=== PATIENT | female | born 1940 | race Caucasian/White ===

== ENCOUNTER → 2023-11-14 12:50 | Outpatient (REF) | payer OTHER, SELFPAY | LOC: HWRAD 12:50 | PROVIDERS: ATTENDING PHYSICIAN Family Medicine; FAMILY PHYSICIAN Nurse Practitioner Family | DX: R05.3 Chronic cough (principal) | CPT/HCPCS: 71046 ==

== ENCOUNTER → 2024-03-04 12:21 | Outpatient (REF) | payer OTHER, SELFPAY | LOC: HWRAD 12:21 | PROVIDERS: ATTENDING PHYSICIAN Internal Medicine Critical Care Medicine; FAMILY PHYSICIAN Nurse Practitioner Family | DX: R91.1 Solitary pulmonary nodule (principal) | CPT/HCPCS: 71250 ==

== ENCOUNTER → 2024-06-26 12:42 | Outpatient (REF) | payer OTHER, SELFPAY | LOC: HWRCS 12:42 | PROVIDERS: ATTENDING PHYSICIAN Internal Medicine; FAMILY PHYSICIAN Nurse Practitioner Family | DX: R07.89 Other chest pain (principal) | CPT/HCPCS: 93306 ==

== ENCOUNTER → 2024-07-17 10:36 | Outpatient (REF) | payer OTHER, SELFPAY | LOC: DHCBC/DCA 10:36 | PROVIDERS: ATTENDING PHYSICIAN Internal Medicine; FAMILY PHYSICIAN Nurse Practitioner Family | DX: R07.89 Other chest pain (principal) | CPT/HCPCS: 78452; 93017; A9500; J2785 ==

== ENCOUNTER → 2024-07-22 13:09 | Outpatient (REF) | payer OTHER, SELFPAY | LOC: HWRAD 13:09 | PROVIDERS: ATTENDING PHYSICIAN Internal Medicine Critical Care Medicine; FAMILY PHYSICIAN Nurse Practitioner Family | DX: R91.1 Solitary pulmonary nodule (principal) | CPT/HCPCS: 71250 ==

== ENCOUNTER → 2024-10-01 13:06 | Outpatient (REF) | payer OTHER, SELFPAY | LOC: HWWDC 13:06 | PROVIDERS: ATTENDING PHYSICIAN Nurse Practitioner Family | DX: Z12.31 Encounter for screening mammogram for malignant neoplasm of breast (principal) | CPT/HCPCS: 77063; 77067 ==

== ENCOUNTER → 2024-10-21 12:31 | Outpatient (REF) | payer OTHER, SELFPAY | LOC: HWRAD 12:31 | PROVIDERS: ATTENDING PHYSICIAN Nurse Practitioner Adult Health; FAMILY PHYSICIAN Nurse Practitioner Family | DX: R91.1 Solitary pulmonary nodule (principal) | CPT/HCPCS: 71250 ==

== ENCOUNTER → 2024-11-03 10:11 | Outpatient (REF) | payer OTHER, SELFPAY | LOC: WDC 10:11 | PROVIDERS: ATTENDING PHYSICIAN Nurse Practitioner Family | DX: R92.8 Other abnormal and inconclusive findings on diagnostic imaging of breast (principal) | CPT/HCPCS: 77065 ==

== ENCOUNTER → 2024-11-05 12:11 | Outpatient (REF) | payer OTHER, SELFPAY | LOC: PET 12:11 | PROVIDERS: ATTENDING PHYSICIAN Internal Medicine Critical Care Medicine | DX: R91.1 Solitary pulmonary nodule (principal) | CPT/HCPCS: 78815; A9552 ==

== ENCOUNTER 2024-11-16 06:10 | Day surgery (SDC) | payer OTHER, SELFPAY ==
[2024-11-10 13:53] LABS: INR 1.04; PT 13.9 Sec (11.4-14.6)
[2024-11-10 13:54] LABS: APTT 35.3 Sec (23.4-35.0); Hematocrit 34.7 % (37.0-47.0); Hemoglobin 11.9 g/dL (12.0-16.0); Mean Corp Hgb Conc. 34.3 g/dL (33.0-37.0); Mean Corpuscular Hgb 33.1 pg (27.0-31.0); Mean Corpuscular Volume 96.7 fL (81.0-99.0); Platelet Count 227 10^3/uL (130-400); Red Blood Cell Count 3.59 10^6/uL (4.20-5.40); Red Cell Dist. Width 13.2 % (11.5-14.5); White Blood Cell Count 3.7 10^3/uL (4.8-10.8)
[2024-11-10 14:16] VITALS: BMI 24.3
[2024-11-10 14:27] LABS: Blood Urea Nitrogen 15 mg/dl (7-17); Calcium 8.6 mg/dl (8.4-10.2); Carbon Dioxide 27 mmol/L (22-30); Chloride 102 mmol/L (98-107); Estimated Creatinine Clearance 58 ml/min; Glucose 92 mg/dl (70-99); Sodium 139 mmol/L (135-145); eGFR > 60.00
[2024-11-16 08:38] VITALS: BMI 24.3
[2024-11-16 08:50] VITALS: BP 124/79
[2024-11-16] MEDS: DUONEB 3 ML INH (08:53)
[2024-11-16 08:56] VITALS: BMI 24.0
[2024-11-16 10:34] VITALS: BP 119/74; BP 124/79
[2024-11-16 10:45] VITALS: BP 112/75
[2024-11-16 11:20] VITALS: BP 121/83
[2024-11-16 11:35] VITALS: BP 130/72
[2024-11-16 11:50] VITALS: BP 123/66
== END 2024-11-16 11:50 | disposition home or self-care (01) ==
LOC: GI 06:10
PROVIDERS: ATTENDING PHYSICIAN Internal Medicine Critical Care Medicine; FAMILY PHYSICIAN Nurse Practitioner Family
DX: C34.2 Malignant neoplasm of middle lobe, bronchus or lung (principal); R91.1 Solitary pulmonary nodule; R59.0 Localized enlarged lymph nodes; J84.9 Interstitial pulmonary disease, unspecified; R91.8 Other nonspecific abnormal finding of lung field
CPT/HCPCS: 31629; 31624; 31623; 31627; 31654; 88173; 88305; 36415; 71045; 76000; 80048; 81459; 85027; 85610; 85730; 87015; 87070; 87077; 87102; 87116; 87185; 87205; 88112; 88341; 88342; 93005; 94640; C1887

== ENCOUNTER → 2024-12-08 06:33 | Outpatient (REF) | payer OTHER, SELFPAY ==
--- NOTE | 2024-12-08 08:54 | OID.BR.INTR ---
PAOD Breast Navigator - Initial
- -
Date of Contact: 12/08/24
Met with patient. Patient given written information on navigator service available at [facility]. Will follow up as needed per protocol.
== END ==
LOC: WDC 06:33
PROVIDERS: ATTENDING PHYSICIAN Nurse Practitioner Family
DX: R92.1 Mammographic calcification found on diagnostic imaging of breast (principal)
CPT/HCPCS: 88305; 19081; 76098; 88341; 88342; 88360; A4648

== ENCOUNTER 2025-01-04 14:55 | Emergency (ER) | payer OTHER, SELFPAY ==
[2025-01-04 14:58] VITALS: BP 141/86
[2025-01-04 15:16] LABS: % Basophils 0.3 % (0-2); % Eosinophils 2.1 % (0-6); % Immature Granulocytes 0.5 % (0-0.5); % Lymphocytes 5.4 % (20.5-51.1); % Monocytes 5.7 % (1.7-9.3); Absolute Eosinophils 0.2 10^3/uL (0-0.7); Absolute Immature Granulocytes 0.1 10^3/uL (0-0.05); Absolute Lymphocytes 0.5 10^3/uL (1.2-3.4); Absolute Monocytes 0.6 10^3/uL (0.1-0.6); Absolute Neutrophils 8.7 10^3/uL (1.4-6.5); Hematocrit 35.8 % (37.0-47.0); Hemoglobin 11.9 g/dL (12.0-16.0); Mean Corp Hgb Conc. 33.2 g/dL (33.0-37.0); Mean Corpuscular Hgb 32.3 pg (27.0-31.0); Mean Corpuscular Volume 97.3 fL (81.0-99.0); Nucleated Red Blood Cells % 0 %; Platelet Count 201 10^3/uL (130-400); Red Blood Cell Count 3.68 10^6/uL (4.20-5.40); Red Cell Dist. Width 14.1 % (11.5-14.5); White Blood Cell Count 10.1 10^3/uL (4.8-10.8)
[2025-01-04 15:41] LABS: ALT (SGPT) 27 U/L (0-35); AST (SGOT) 22 U/L (14-36); Albumin 4.4 g/dl (3.5-5.0); Alkaline Phosphatase 77 U/L (38-126); Blood Urea Nitrogen 14 mg/dl (7-17); Calcium 8.5 mg/dl (8.4-10.2); Carbon Dioxide 25 mmol/L (22-30); Chloride 109 mmol/L (98-107); Glucose 99 mg/dl (70-99); Sodium 140 mmol/L (135-145); Total Bilirubin 0.9 mg/dl (0.2-1.3); Total Protein 6.9 g/dl (6.3-8.2); eGFR > 60.00
[2025-01-04 16:02] LABS: Lipase 57 U/L (23-300)
[2025-01-04] MEDS: OMNIPAQUE 50 ML PO (20:54)
[2025-01-04 20:58] VITALS: BP 122/85
[2025-01-04 21:02] VITALS: BMI 24.6
[2025-01-04] MEDS: ZOFRAN 4 MG IV (21:52)
[2025-01-04] MEDS: MORPHINE SULFATE 4 MG IV (21:54)
[2025-01-04 22:00] VITALS: BP 128/80
[2025-01-04 22:10] LABS: Urine Albumin 1+ (Neg - Trace); Urine Bilirubin Negative (Negative); Urine Character Clear (Clear); Urine Color Yellow; Urine Glucose Negative (Negative); Urine Ketone Negative (Negative); Urine Leukocyte Negative (Negative); Urine Nitrite Negative (Negative); Urine Occult Blood 1+ (Negative); Urine Urobilinogen Negative (Neg - 1+)
[2025-01-04 22:48] LABS: Urine Bacteria Few (Negative); Urine Red Blood Cell 0-2 /HPF (0-2); Urine Squamous Cell >30 /LPF (Few)
[2025-01-04 23:00] VITALS: BP 120/81
--- NOTE | 2025-01-05 00:20 | ED.GENMED ---
History of Present Illness
General
Chief Complaint: Abdominal Pain
Source: patient and family
Exam Limitations: none
Time Seen by Provider: 01/04/25 20:12
Nursing documentation reviewed up to this point in time: agreed with
History of Present Illness
History of Present Illness:
84-year-old female presents emergency department due to right-sided abdominal pain since this morning. She states it feels like gas. She had a fever 102 over the weekend right upper quadrant pain.
Past History
Past History
ED Past Medical History: Cancer (Thyroid cancer), HTN, Hypercholesterolemia and Other (TIA; left forearm/ulna surgery due to trauma.)
ED Past Surgical History: Appendectomy, Gynecological (hysterectomy), Orthopedic (Bilateral hip replacements) and Other (thyroidectomy)
Social History
Tobacco: Smoker (1ppd for 50+ yrs)
Alcohol: Daily (1 drink daily)
Drug: None
Personal:
Living: with family
Employment: Retired (RN)
Family History
Family History: Other
Review of Systems
Review of Systems
Allergies reviewed?: Yes
All Other Systems: Not applicable
Constitutional: Reports no symptoms
EENT: Reports no symptoms
Respiratory: Reports no symptoms
Cardiac: Reports no symptoms
ABD/GI: Reports abdominal pain
: Reports no symptoms
Musculoskeletal: Reports no symptoms
Skin: Reports no symptoms
Neurological: Reports no symptoms
Endocrine: Reports no symptoms
Hematologic/Lymphatic: Reports no symptoms
Psychiatric: Reports no symptoms
Phy Exam
Physical Exam
Physical Exam:
Physical Exam
General: no apparent distress, not acutely ill
Neck: supple. no meningeal signs. normal posterior pharynx
Heart: s1/s2 regular rate and rhythm, no murmur. equal radial
pulses.
HEENT: Pupils equal round reactive to light, EOMI
Lungs: no acute respiratory distress. clear bilaterally
Abdomen: normal bowel sounds. Right lower quadrant abdominal tenderness. No rebound or guarding. No CVAT
Neuro: alert and oriented. no focal neurological deficits cranial nerves II through XII intact
Skin: no rash
Psychiatric: well kept. interactive and cooperative
Extremities: no edema. no calf tenderness. negative homans. good distal pulses
Course
Orders/Labs/Results
Orders:
Orders
01/04/25 15:04
Obstruct Series W/PA Chest [CR Obstruct Series W/pa Chest] Urgent
Comment:
Reason For Exam: pain
01/04/25 15:06
Complete Blood Count/With Diff Urgent
Comprehensive Metabolic Panel Urgent
Lipase Urgent
01/04/25 20:25
Iohexol [Omnipaque] See Protocol PO NOW STA
01/04/25 20:26
CT Abd/pel W Iv And Oral Contr Urgent
Comment:
Reason For Exam: diffuse abd pain, nausea
01/04/25 21:09
Morphine Sulfate 4 mg IV NOW STA
Ondansetron Injectable [Zofran] 4 mg IV NOW STA
01/04/25 21:58
Urinalysis Reflex To Culture Urgent
Date Specimen was Collected: 01/04/25
Time Specimen was Collected: 20:38
Urine Microscopic Reflex Cult Urgent
Abnormal Lab Results
01/04/25 01/04/25
15:06 21:58
RBC 3.68 L 10^6/uL
(4.20-5.40)
Hgb 11.9 L g/dL
(12.0-16.0)
Hct 35.8 L %
(37.0-47.0)
MCH 32.3 H pg
(27.0-31.0)
Abs Immat Gran (auto) 0.1 H 10^3/uL
(0-0.05)
Absolute Neuts (auto) 8.7 H 10^3/uL
(1.4-6.5)
Absolute Lymphs (auto) 0.5 L 10^3/uL
(1.2-3.4)
Neutrophils % 86.0 H %
(42.2-75.2)
Lymphocytes % 5.4 L %
(20.5-51.1)
Chloride 109 H mmol/L
(98-107)
Ur Occult Blood Reflex 1+ A
(Negative)
Urine Bacteria (Reflex) Few A
(Negative)
Urine Albumin (Reflex) 1+ A
(Neg - Trace)
01/04/25 15:06
01/04/25 15:06
Vital Signs
Initial and Last Documented VS:
Initial Vital Signs
Temp Pulse Resp BP Pulse Ox
98.1 F 54 16 141/86 97
01/04/25 14:58 01/04/25 14:58 01/04/25 14:58 01/04/25 14:58 01/04/25 14:58
Last Documented Vital Signs
Temp Pulse Resp BP Pulse Ox
98.1 F 54 16 120/81 92
01/04/25 14:58 01/04/25 14:58 01/04/25 14:58 01/04/25 23:00 01/04/25 23:00
MDM/Problems Addressed
Differential Diagnosis Includes:
Appendicitis, cholecystitis, diverticulitis, mass
MDM/Problems Addressed:
84-year-old female with cecum mass causing abdominal pain. No respiratory symptoms at this time. Discussed with Dr. Mcrae, who recommends outpatient follow-up. Return precautions given.
Chronic conditions affecting care: Cancer (Thyroid, breast, lung)
*Radiology
Radiology exam reviewed: radiology read reviewed (CT abdomen pelvis shows circumferential mass within the cecum, no bowel obstruction, read by Dr. Werner)
*Pulse Oximetry
Patient hypoxic: no
*Critical Care Note
Total Time (30-74mins, 75-104mins- exclusive of procedures): Not Applicable
Patient Management
Social determinants of health affecting care: Living situation and Strong social support
Discussion with other providers: Lending Advisor (Colorectal surgery Dr. Mcrae recommends outpatient follow-up)
Escalation/DeEscalation of care consider admission/obs:
Admit not indicated
ED Attending Note
-
Portions of this chart may have been created with voice recognition software.� Occasional wrong word or��sound alike� substitutions may have occurred due to the inherent limitations of voice recognition software.
Discharge Plan
Departure
Patient Disposition: Home (Routine Discharge)
Date of Disposition: 01/05/25
Time of Disposition: 00:25
Patient with high blood pressure during this ER visit?: Yes
Condition: Good
Discharge Problem:
Mass of cecum
Instructions: Colon and Rectal Cancer (DC), BLOOD PRESSURE
Prescriptions:
No Action
metoprolol tartrate 100 MG tablet
100 mg PO BID
pantoprazole 40 MG tablet,delayed release (DR/EC)
40 mg PO DAILY
amlodipine 10 mg Tablet
10 mg PO HS
losartan 100 mg Tablet
100 mg PO DAILY
azithromycin 250 mg Tablet
250 mg PO MOWEFR
Rx Instructions:
For 250 mg dose pack: take 500 mg today (day 1), then 250 mg for 4 days (days 2-5)
aspirin 325 mg Tablet
325 mg PO HS
gabapentin 400 mg Capsule
400 mg PO TID
Rx Instructions:
0900, 1500, 2100
sertraline 100 mg Tablet
100 mg PO .AFTERNOON
clonazepam [Klonopin] 1 mg Tablet
1 mg PO DAILY PRN (Reason: anxiety/panic attacks)
levothyroxine 100 mcg Tablet
100 mcg PO 0300
temazepam 15 mg Capsule
15 mg PO HS PRN (Reason: sleep)
montelukast 10 mg Tablet
10 mg PO .AFTERNOON
ezetimibe 10 mg Tablet
10 mg PO HS
rosuvastatin 40 mg Tablet
40 mg PO HS
omeprazole 20 mg Tablet,Delayed Release (Dr/Ec)
20 mg PO DAILY
multivit with min-folic acid [Multivitamin Gummies] 200 mcg Tablet,Chewable
2 tab PO DAILY
PreserVision AREDS-2 250-90-40-1 mg Capsule
1 tab PO BID
Calcium Gummies
2 gummy PO DAILY
Referrals:
Phu Mcrae MD [Active] - Call in 1-3 days for appt
Tiffanie Jane CRNP [Family Provider] -
Interventions
Interventions:
*Risk Screen - Suicide Last Done: 01/04/25 14:58
*General Assessment Last Done: 01/04/25 14:58
*Neglect/Abuse Screening Last Done: 01/04/25 21:03
*ED- Fall Risk Assessment Last Done: 01/04/25 21:03
*ED COVID-19 Vaccine History Last Done: 01/04/25 21:03
TH-Hehahf-Qodachsygx Assessment Last Done: 01/04/25 21:03
Discharge Date and Time
Print Language: FRENCH
== END 2025-01-05 00:44 | disposition home or self-care (01) ==
LOC: EMR 14:55
PROVIDERS: Emergency Medicine; EMERGENCY PHYSICIAN Emergency Medicine; FAMILY PHYSICIAN Nurse Practitioner Family
DX: K63.9 Disease of intestine, unspecified (principal); I10 Essential (primary) hypertension; E78.00 Pure hypercholesterolemia, unspecified; C50.919 Malignant neoplasm of unspecified site of unspecified female breast; C73 Malignant neoplasm of thyroid gland; F17.210 Nicotine dependence, cigarettes, uncomplicated; Z85.850 Personal history of malignant neoplasm of thyroid; Z86.73 Personal history of transient ischemic attack (TIA), and cerebral infarction without residual deficits; Z90.49 Acquired absence of other specified parts of digestive tract; Z90.710 Acquired absence of both cervix and uterus; Z96.643 Presence of artificial hip joint, bilateral
CPT/HCPCS: 99284; 96374; 96375; 74022; 74177; 80053; 81003; 81015; 83690; 85025; Q9967

== ENCOUNTER 2025-01-15 06:09 | Day surgery (SDC) | payer OTHER, SELFPAY ==
[2025-01-15 11:54] VITALS: BMI 23.5
[2025-01-15 11:55] VITALS: BMI 23.5
[2025-01-15 11:56] VITALS: BP 135/80
[2025-01-15 13:15] VITALS: BP 138/94
[2025-01-15 13:30] VITALS: BP 142/91
[2025-01-15 13:45] VITALS: BP 130/76
[2025-01-15 14:00] VITALS: BP 130/90
[2025-01-15 14:15] VITALS: BP 133/86
== END 2025-01-15 14:31 | disposition home or self-care (01) ==
LOC: GI 06:09
PROVIDERS: ATTENDING PHYSICIAN Surgery
DX: R93.3 Abnormal findings on diagnostic imaging of other parts of digestive tract (principal); K57.30 Diverticulosis of large intestine without perforation or abscess without bleeding; K64.4 Residual hemorrhoidal skin tags; K64.8 Other hemorrhoids; D49.0 Neoplasm of unspecified behavior of digestive system; D12.3 Benign neoplasm of transverse colon; K63.3 Ulcer of intestine; D12.2 Benign neoplasm of ascending colon
CPT/HCPCS: 45385; 45380; 88305; 88341

== ENCOUNTER → 2025-02-03 13:39 | Outpatient (REF) | payer OTHER, SELFPAY | LOC: RAD 13:39 | PROVIDERS: ATTENDING PHYSICIAN Surgery; FAMILY PHYSICIAN Nurse Practitioner Family | DX: C18.2 Malignant neoplasm of ascending colon (principal) | CPT/HCPCS: 71270; Q9967 ==

== ENCOUNTER → 2025-02-08 09:49 | Outpatient (REF) | payer OTHER, SELFPAY ==
[2025-02-08 10:30] LABS: % Basophils 1.9 % (0-2); % Eosinophils 11.5 % (0-6); % Lymphocytes 26.8 % (20.5-51.1); % Monocytes 14.2 % (1.7-9.3); % Neutrophils 45.6 % (42.2-75.2); Absolute Basophils 0.1 10^3/uL (0-0.2); Absolute Eosinophils 0.3 10^3/uL (0-0.7); Absolute Lymphocytes 0.7 10^3/uL (1.2-3.4); Absolute Monocytes 0.4 10^3/uL (0.1-0.6); Absolute Neutrophils 1.2 10^3/uL (1.4-6.5); Hemoglobin 11.4 g/dL (12.0-16.0); Mean Corp Hgb Conc. 32.6 g/dL (33.0-37.0); Mean Corpuscular Hgb 32.2 pg (27.0-31.0); Mean Corpuscular Volume 98.9 fL (81.0-99.0); Mean Platelet Volume 10.6 fL (7.4-10.4); Nucleated Red Blood Cells % 0 %; Platelet Count 182 10^3/uL (130-400); Red Blood Cell Count 3.54 10^6/uL (4.20-5.40); Red Cell Dist. Width 14.2 % (11.5-14.5); White Blood Cell Count 2.6 10^3/uL (4.8-10.8)
[2025-02-08 10:39] LABS: INR 1.01; PT 13.6 Sec (11.4-14.6)
[2025-02-08 11:58] LABS: APTT 31.4 Sec (23.4-35.0)
[2025-02-08 20:25] LABS: CEA 7.38 ng/ml
== END ==
LOC: RCS 09:49
PROVIDERS: ATTENDING PHYSICIAN Nurse Practitioner Family
DX: Z01.818 Encounter for other preprocedural examination (principal)
CPT/HCPCS: 36415; 82378; 85025; 85610; 85730; 93005

== ENCOUNTER 2025-02-23 07:13 | Inpatient (IN) | payer OTHER, SELFPAY ==
--- NOTE | 2025-02-09 10:18 | PTCARENOTE ---
Patients 02/08 WBC 2.6-Anny @ Dr. Arias office notified
[2025-02-09 11:48] LABS: ALT (SGPT) 32 U/L (0-35); AST (SGOT) 30 U/L (14-36); Albumin 4.7 g/dl (3.5-5.0); Alkaline Phosphatase 73 U/L (38-126); Blood Urea Nitrogen 11 mg/dl (7-17); Calcium 8.9 mg/dl (8.4-10.2); Carbon Dioxide 29 mmol/L (22-30); Chloride 108 mmol/L (98-107); Glucose 104 mg/dl (70-99); Potassium 3.8 mmol/L (3.5-5.1); Sodium 144 mmol/L (135-145); Total Protein 7.5 g/dl (6.3-8.2); eGFR > 60.00
[2025-02-09 12:12] LABS: Glycohemoglobin (HgbA1c) 5.3 % (4.0-5.6)
[2025-02-23] VITALS (12 sets, daily range): BP systolic 90–138; BP diastolic 49–89; BMI 23.3; BMI 24.7
[2025-02-23] MEDS: LYRICA 150 MG PO (07:29)
[2025-02-23] MEDS: HEPARIN 5000 UNITS SC (07:30)
[2025-02-23] MEDS: TYLENOL 1000 MG PO (07:30)
[2025-02-23] MEDS: NORMOSOL-R/PLASMALYTE-A 1000 IV ×2 (07:30→18:10)
[2025-02-23] MEDS: ENTEREG 12 MG PO (07:30)
--- NOTE | 2025-02-23 15:39 | W.IMMPOSTOP ---
Addendum entered and electronically signed by Hira Cha MD 02/23/25 22:39:
Correction: EBL *75mL
Original Note:
Surgical Immed Post Op Note
-
Primary Surgeon: Hira Cha MD
Assisting Surgeon: SOL Sam
Co-surgeon: Lorenzo Mcrae MD
Pre-op Diagnosis: Ascending colon mass
Post-op Diagnosis: Ascending colon ulcer, small bowel lesion
Procedure Performed: Robotic right hemicolectomy, extensive lysis of adhesions greater than 1.5 hours, mesenteric angiography with ICG, colonoscopy, small bowel resection
Anesthesia Type: General
Specimen / Cultures: Right colectomy, small bowel resection
Estimated Blood Loss: 25 mL
IVF: 2.9 L
UOP: 1.0 L
Complications: None
Operative Findings: Obtained abdominal axis via Veress; significant adhesions from the omentum to the anterior abdominal wall; placed left lateral assist port and sharply lysed adhesions until I was able to place 2 additional ports; the robot was
docked and I lysed the remainder of the adhesions; no obvious peritoneal lesions or lesions seen on the anterior liver; cecum was redundant and within the pelvis; performed medial to lateral mobilization of the right colon; identified the right
ureter and kept safe from my dissection; high ligation of the ileocolic pedicle and the right branch of the middle colic; checked transection points and well-perfused on firefly; transected the small bowel at about 6 cm proximal from the ileocecal
valve and transected at the mid transverse colon; performed isoperistaltic intracorporeal opos-ao-psai anastomosis; while running the bowel to ensure no bowel herniated through the mesenteric defect, discovered a 1 cm small bowel lesion that
appeared polypoid but firm; tagged this with a 2-0 Vicryl; I ran the entire length of the small bowel and no other lesions were noted; created Pfannenstiel incision and extracted the specimen; evaluated the specimen but no mass was found; performed
colonoscopy; unable to pass the colonoscope past the sigmoid colon due to the tortuosity and adhesions to the left pelvis and left lower abdomen; redocked of the robot and lysed adhesions from the sigmoid to the left pelvis and left lower quadrant;
easily identified the left ureter and kept it the safe; performed colonoscopy and reached the ileocolic anastomosis; intubated the small bowel and no mass was seen; on completion of colonoscopy, no mass was seen; my partner, Dr. Mcrae, performed
colonoscopy and confirmed no mass; performed small bowel resection with 8 cm margins of the small bowel lesion and performed stapled [id number] anastomosis through the Pfannenstiel; closed in the usual fashion
--- NOTE | 2025-02-23 15:48 | OR.RPT ---
Operative Report
Operative Report
DATE OF OPERATION: 02/23/2025
SURGEON: Hira Cha MD
PREOPERATIVE DIAGNOSIS: Ascending colon mass
POSTOPERATIVE DIAGNOSIS: Ascending colon ulcer, small bowel lesion
OPERATION: Robotic right hemicolectomy, adhesiolysis greater than 1.5 hr, mesenteric angiography with ICG, colonoscopy, small bowel resection
ASSISTANTS:
1. Lorenzo Mcrae MD
2. SOL Sam
ANESTHESIA: General
ESTIMATED BLOOD LOSS: 75 mL
UOP: 1.0 L mL
IVF: 2.9 L mL
FINDINGS:
1. Significant adhesions from the omentum to the anterior abdominal wall as well as loops of small bowel
1. Performed high ligation of the ileocolic pedicle and right branch of the middle colic; performed iiub-ob-lacl isoperistaltic intracorporeal anastomosis
2. On review of specimen on the back table, no obvious mass that was consistent with my preoperative colonoscopy was found; performed intra-operative colonoscopy and repeat colonoscopy by Dr. Mcrae to confirm no lesion remaining in the in situ colon
3. Identified a polypoid extraluminal small bowel mass, about 1 cm in size; performed small bowel resection with 8 cm margins proximally and distally
SPECIMENS:
1. Right colectomy
2. Small bowel resection
DRAINS: None
COMPLICATIONS: No immediate complications.
INDICATIONS: The patient is a 84-year-old female who was recently diagnosed with lung cancer and underwent radiation therapy. After her last dose of radiation, she developed right-sided abdominal pain, for which a CT scan was done and showed an
ascending colon mass. I performed a colonoscopy on 01/15/2025, which confirmed an ulcerated mass in the proximal ascending colon, within view of the ileocecal valve. Biopsy of the mass showed fragments of adenomatous tissue as well as ulceration.
As this mass was not endoscopically resectable, I recommended colectomy, both to confirm the pathology and for oncologic resection if cancer is found. The operation was discussed with the patient in detail, including the risks, benefits and
alternatives. Risks described included, but not limited to, bleeding, infection, anastomotic leak, damage to nearby structures (i.e.- bowel, bladder, solid organ injury, ureter), need for ostomy creation, conversion to open, incisional hernia,
inability to remove the entire cancer, future recurrence or metastasis and anesthetic risks, including but not limited to AR, stroke, DVT/PE, respiratory failure and . The patient understood and agreed to proceed.
PROCEDURE IN DETAIL: The patient was taken to the operating room and placed on the operating table in supine position. Sequential compression devices were placed bilaterally. General anesthesia was induced and the patient was intubated without
complication. Bilateral arms were tucked. Ramírez catheter was placed with sterile technique. Anesthesia placed an orogastric tube. Preoperative antibiotics were given. The abdomen was shaved, prepped and draped in a sterile fashion. A marking
pen was used to robert out the midline. A time-out was performed verifying the correct patient, procedure, operative site, positioning, and special equipment.
At Eng's point, using an 11 blade scalpel, an 8 mm incision was made. A Veress needle was used to obtain abdominal access. After 3 clicks, insufflation was initiated and the opening pressure was noted to be less than 8 mmHg. The abdomen was
insufflated to a pressure of 12, which the patient tolerated well. The 8 mm robotic trocar was introduced and the robotic endoscope advanced. No injury from initial Veress placement or port placement was noted. The abdomen was explored. There
were significant adhesions from the omentum to the anterior abdominal wall, taking up the majority of the abdominal space. There were no concerning peritoneal lesions or superficial lesions on the liver. Under direct visualization, I placed an 8
mm robotic trocar in the left lateral abdomen for an assistant store leader port. Using these 2 ports, I started to lyse adhesions with a laparoscopic scissors, enough to place 2 additional ports. Although there was significant adhesions, the adhesions were
thin. Once the left hemiabdomen was clear, I placed 2 additional ports under direct visualization along a diagonal from Eng's point to the pubic symphysis, taking care to avoid injury to the epigastric vessels. As there was still significant
adhesions in the mid and lower abdomen, I decided to dock the robot and take these down with robotic instruments. The patient was placed in slight Trendelenburg with slight right side up. The robot was docked from the patient's right side. The
robotic endoscope, scissors and fenestrated bipolar were placed. With meticulous dissection, I took down the remaining adhesions from the anterior abdominal wall. The ascending colon was quite redundant and the cecum was located in the pelvis. I
retracted this from the pelvis. I palpated along the cecum and thought that I witnessed movement in the character of a mass. Under direct visualization, I placed a 12 mm port in the suprapubic region, about 2 fingerbreadths above the pubic
symphysis, taking care to avoid injury to the bladder. From the Pfannenstiel to Eng's point, the instruments were rearranged to the following order: bipolar grasper, camera, scissors and tip up grasper.
To begin, I grasped and elevated the cecum. There were some adhesions between the cecum and terminal ileum to the right brim of the pelvis and the right lower quadrant. There was no appendix clearly visualized but scar tissue in the area. I
identified the right ureter and confirmed vermiculation. I kept this at a safe distance from my dissection. I retracted the transverse colon. The ileocolic pedicle was nicely exposed. A medial to lateral mobilization was performed by first incising
the peritoneal lining just below the pedicle using the robotic scissors. I elevated the pedicle anteriorly and swept the retroperitoneum down bluntly in order to identify the duodenum. Once the duodenum was swept away from the takeoff of the
ileocolic pedicle, I isolated the ileocolic pedicle circumferentially and performed a high ligation using the vessel sealer. The ileocolic stump was hemostatic. I continued my medial to lateral dissection up to the hepatic flexure and then below
the right colon and cecum, taking care to avoid injury to the duodenum, right kidney and right ureter.
After the right colon was completely mobilized medially, I turned my attention to the transverse colon. I grasped and elevated the omentum while retracting the transverse colon caudally. I divided the gastrocolic ligament. I had difficulty
entering the lesser sac as the omentum had significant adiposity. I continued dividing the gastrocolic ligament toward the hepatic flexure. I was able to continue dissecting through the omentum and ultimately identified the lesser sac by
visualizing the posterior wall of the stomach, avoiding injury to the right gastroepiploic artery. I carried this dissection around the hepatic flexure using a combination of blunt dissection and the vessel sealer, taking care to avoid injury to the
liver, gallbladder, duodenum and pancreas. Once the hepatic flexure was completely mobilized, I continued this dissection by taking down the white line of Toldt to my previous dissection of the cecum. I mobilized the attachments of the terminal
ileum and its mesentery from the RLQ and right pelvic brim, taking care to avoid injury to the right ureter. At this point, the entire cecum, right colon and hepatic flexure were nicely mobilized. I selected a point about 5 cm proximal from the
ileocecal valve and elevated this with my tip up grasper. I grasped the transected ileocolic pedicle on the specimen side and used the vessel sealer to serially ligate the mesentery up to my selected point on the terminal ileum.
I grasped the mid�transverse colon and elevated this in order to expose and visualize the mesentery. I created a hole in the mesentery at my planned transection point in the mid transverse colon. I serially divided the mesentery towards the cut
edge of the mesentery from my medial mobilization, taking care to avoid injury to the duodenum and pancreas, ligating the right branch of the middle colic as close to its takeoff as possible. There was no apparent right colic artery. Anesthesia
injected ICG and I confirmed adequate perfusion to my intended transections point. Using the 60 mm robotic stapler with a blue load, I stapled and divided the transverse colon and terminal ileum. The specimen was placed in the right upper quadrant.
I examined the bowel for my future anastomosis. I placed the terminal ileum adjacent to the transverse colon. This aligned nicely for a [id number] isoperistaltic anastomosis without any evidence of tension. I placed an anchor stitch of 2-0
Vicryl to align the transverse colon staple line and the ileum about 8cm proximal to the small bowel staple line. I left the tails long and used this to retract. I created a colotomy at about 8 cm distal to the staple line on the transverse colon
and a enterotomy 2 cm proximal to the staple line on the terminal ileum. I advanced the 60 mm robotic stapler with a white load through the bowel openings, ensured ideal alignment and fired. After the robotic stapler was withdrawn, no bleeding was
noted from the staple line. The common defect was closed using a 3-0 V-loc suture in 2 layers, starting from the superior aspect and sewing inferiorly in a running baseball fashion, and then superiorly in a running [place] fashion in order to
imbricate the first layer.
After the anastomosis was complete the operative field was examined. There was complete hemostasis. While I was running the bowel to ensure that no bowel was herniating through the mesenteric defect, I identified a small bowel lesion, extending
from the wall of the small bowel, about 1 cm in size. It was slightly red, slightly polypoid, not obviously malignant, but difficult to be sure. It did not appear to be a diverticulum as it appeared somewhat hard. I tagged this spot with a 2-0
Vicryl stitch and left the tails long. I ran the bowel from my ileocolic anastomosis to the ligament of Treitz. No additional lesions were noted along the small bowel, and no bowel was herniating through the mesenteric defect. The anastomosis
appeared well-perfused and there was no tension. The greater omentum was grasped and evaluated and appeared well-vascularized. The omentum was draped over the anastomosis.
A 6 cm Pfannenstiel incision was made with electrocautery, extending the length of my suprapubic port incision. I took this down to the level of fascia with Bovie electrocautery and hemostasis was assured. The anterior fascia was incised with
electrocautery and extended to just beyond the length of the Pfannenstiel incision on each side. Using adi's, the anterior fascia was grasped and elevated. The attachments to the rectus muscle were taken down bluntly and attachments to the
midline were taken down with electrocautery. This was done both superiorly and inferiorly to our incision. I entered the hole in the peritoneum created by the port and incised the peritoneum superiorly and inferiorly, taking care to avoid injury
to the bladder. A small Red was placed. I retrieved the specimen and examined it on the back table. I opened the entire length of the specimen and wiped away the remaining liquid stool. There was no colon mass seen. There was no mass
consistent with the mass that I saw during my preoperative colonoscopy. I pulled up the CT images and confirmed the location of the mass to be in the cecum. I evaluated the remainder of the colon on the CT scan and did not see any evidence of a
mass elsewhere in the colon. I placed the patient in frog-leg position and performed a colonoscopy. I advanced the lubricated colonoscope transanally. There was some liquid stool that was easily suctioned within the rectum and rectosigmoid.
However, the sigmoid colon was significantly tortuous and I was unable to traverse the area due to the severe kinks. My assistant store leader insufflated the abdomen and reinserted the robotic endoscope. I attempted to continue performing colonoscopy with
laparoscopic guidance. There were significant adhesions of the sigmoid colon to the left pelvis and left lower quadrant. The sigmoid colon was also significantly redundant. In order to avoid perforation or tear and in order to complete
colonoscopy, I returned the patient to supine position and redocked the robot. I placed an additional 8 mm port in the right mid abdomen, under direct visualization, avoiding injury to the epigastric vessels. I meticulously lysed the adhesions
from the sigmoid colon to the left pelvic brim and left pelvis. I easily identified the left ureter and confirmed by witnessing vermiculation. I kept this safe from my dissection. Adhesions continued along the anterior pelvis as well. These
adhesions were multiple, but were thin. After these adhesions were taken down, the rectosigmoid and sigmoid colon were mobilized and easily straightened. I returned to the colonoscopy. I placed the patient back in frog-leg position and advanced
the colonoscope transanally. I was able to advance to the ileocolic anastomosis without difficulty. The ileocolic anastomosis appeared intact. I intubated the small bowel by a few centimeters and intubated the appendage of the transverse colon
and no mass was seen. I slowly and meticulously withdrew the colonoscope and examined every fold. There was no colonic mass, no polyps or any concerning lesions. I discussed the situation with my partner, Dr. Mcrae. He reviewed the images and
agreed to repeat the colonoscopy to confirm my findings. I advanced the colonoscope to the ileocolic anastomosis and gave him the controls. He also did not see any concerning lesions or colonic mass. We discussed possible reasons as to why there
was an ulcerated mass and now there was none. It seemed most likely that the patient developed a mucosal ulcer with a mass�like appearance. The pathology did note fragments of ulceration. And now it appears that the ulceration has healed.
I returned the patient to supine position and redraped the legs with a fresh sterile drape. While the abdomen was insufflated, I grabbed the Vicryl tag and pulled the small bowel with the lesion through the Pfannenstiel for evaluation. The 1 cm
small bowel mass did appear masslike, extending into the lumen of the small bowel, but not particularly hard. I was concerned that this may represent a cancer or at least a precancerous lesion. Therefore, I performed a small bowel resection. I
placed blue towels to exclude the operative field. I measured 8 cm proximal and distal to the mass and created a hole in the mesentery at the mesenteric border. I stapled and divided proximally and distally using the SAÚL 80 with a purple load. I
used the Voyant LigaSure to divide a paddle of mesentery for an adequate lymphadenectomy in case this represents an adenocarcinoma. I passed the specimen off for pathology. The staple lines and cut edge of the mesentery were hemostatic. I
performed a [id number] stapled anastomosis by cutting the antimesenteric corner of the staple lines, advancing the SAÚL 80 mm with a purple load and aligning the antimesenteric borders of each lumen. I stapled and divided. I evaluated the staple
line and it was hemostatic. I aligned the common enterocolotomy with Kristen clamps and stapled it closed with a TA 60mm with a blue load. The staple line was hemostatic. I placed a 3-0 Vicryl crotch stitch. I closed the mesenteric defect with a
running 3-0 Vicryl. The small bowel anastomosis was returned to the abdomen. The cap was placed on the Red and the abdomen was re-insufflated. The abdomen was examined closely and no bleeding was noted. I irrigated the pelvis and the right
upper quadrant. The small bowel and colon were mildly distended, but the anastomosis remained intact without any bowel herniating through the mesenteric defect. The ports were removed under direct visualization and no bleeding was noted. The
abdomen collapsed and the Red was removed. At different portions of the case, I had noted that the patient was somewhat oozy from areas of sharp dissection. I also noted significant oozing from the skin edges of the incisions. Out of an
abundance of caution, I requested anesthesia to administer a dose of TXA. Hemostasis of the skin incisions was achieved with electrocautery. The Pfannenstiel incision was closed in layers. Using an 0 Vicryl stitch, the peritoneum was closed in a
running fashion. The fascia was closed with an 0 Stratafix suture. The incisions were irrigated and injected with 30mL of 0.25% Marcaine with epinephrine mixed with 0.3 mg of dexamethasone. The skin of the incisions were closed with a 4-0
Monocryl in running subcuticular fashion and dressed with Dermabond.
At this point, the procedure was complete. The patient was awoken and extubated without complication. All needle, sponge and instrument counts were reported as correct. The patient tolerated the procedure well and was transferred to the recovery
room in stable condition with the ramírez in place.
Of note, Lorenzo Mcrae MD, assistant store leader, was necessary during this procedure exploratory purposes and to perform colonoscopy. I was present for the entire duration of the case.
DICTATED BY: Hira Cha MD
--- NOTE | 2025-02-23 16:56 | CON.HOSP ---
Consultation
-
Date/Time Consultation Requested: 02/23/2025 1643
Date/Time Consultation Performed: 02/23/2025 1656
Requesting Provider: Hira Cha
Performing Provider: Janette HARGROVE and & Dr. Rio Story
Reason for Consultation: admission post right hemicolectomy
Family Physician
-
Family Physician: BEENA Bishop
Chief Complaint
-
s/p right hemicolectomy for colonic ulcer
History of Present Illness
Patient is a 84-year-old female with past medical history of hypertension, hyperlipidemia, COPD, hypothyroid, depression, right breast cancer (DCIS), squamous cell carcinoma of right lung and Hx thyroid cancer who had right hemicolectomy for colonic
ulcer with Dr. Cha, today. Patient seen in PACU post op for consult to manage chronic health conditions during hospitalization. Patient wakes to verbal stimuli, is oriented and drifts back to sleep.
Medical History
Past Medical History
Past Medical History: Reports Other
Additional Past Medical History:
hypertension
hyperlipidemia
COPD
hypothyroid
depression
right breast cancer (DCIS)
squamous cell carcinoma of right lung
Hx thyroid cancer
Past Surgical History: Reports Other
Additional Past Surgical History:
thyroidectomy
hysterectomy
bilateral hip replacement
right breast biopsy
Social History
Tobacco: Former Smoker (quit approximately 6 months ago)
Alcohol: Occasional
Drug: None
Employment: Retired
Family History
Family History: Unable to Obtain
Allergies / Home Medications
Allergies reflects when Allergies were last updated in [facility].
Home Medications with original date entered in [facility]
Allergy/Medication List:
Allergies
Allergy/AdvReac Type Severity Reaction Status Date / Time
pollen extracts Allergy Sneezing, Verified 02/23/25 07:24
runny
nose,
itchy eyes
- seasonal
Home Medications
metoprolol tartrate 100 mg tablet 100 mg PO BID Blood pressure 09/08/12
pantoprazole 40 mg tablet,delayed release 40 mg PO DAILY Gastrointestinal issue 02/24/21
amlodipine 10 mg tablet 10 mg PO HS 12/01/22
losartan 100 mg tablet 100 mg PO DAILY 12/01/22
Calcium Gummies 2 gummy PO DAILY 11/11/24
aspirin 325 mg tablet 325 mg PO HS 11/11/24
clonazepam 1 mg tablet (Klonopin) 1 mg PO DAILY PRN anxiety/panic attacks 11/11/24
ezetimibe 10 mg tablet 10 mg PO HS 11/11/24
gabapentin 400 mg capsule 400 mg PO TID 11/11/24
levothyroxine 100 mcg tablet 100 mcg PO 0300 11/11/24
montelukast 10 mg tablet 10 mg PO .AFTERNOON 11/11/24
multivitamin with minerals-folic acid 200 mcg chewable tablet (Multivitamin Gummies) 2 tab PO DAILY 11/11/24
omeprazole 20 mg tablet,delayed release 20 mg PO DAILY 0900 11/11/24
rosuvastatin 40 mg tablet 40 mg PO HS 11/11/24
sertraline 100 mg tablet 100 mg PO .AFTERNOON 11/11/24
temazepam 15 mg capsule 15 mg PO HS PRN sleep 11/11/24
vit C 250 mg-vit E 90 mg-zinc 40 mg-copper 1 kg-bzoboc-pcuxmf capsule (PreserVision AREDS-2) 1 tab PO BID 11/11/24
albuterol sulfate 2.5 mg/3 mL (0.083 %) solution for nebulization 2.5 mg inhalation BID 01/15/25
acetaminophen 500 mg tablet 500 mg PO Q6H PRN pain 02/08/25
alprazolam 0.25 mg tablet (Xanax) 0.25 mg PO BID PRN anxiety 02/08/25
ibuprofen 200 mg tablet 400 mg PO Q6H PRN pain 02/08/25
ipratropium bromide 0.02 % solution for inhalation 0.5 mg inhalation BID 02/08/25
metronidazole 500 mg tablet 500 mg PO PRE OP 02/08/25
neomycin 500 mg tablet 1 g PO PRE OP 02/08/25
peg 3350-electrolytes 1 dose PO DIRECTED 02/08/25
Review of Systems
-
History Source: Patient (post-op in PACU offers no complaints )
Constitutional: Reports No Symptoms
EENT: Reports No Symptoms
Respiratory: Reports No Symptoms
Cardiac: Reports No Symptoms
Abdomen/GI: Reports No Symptoms
: Reports No Symptoms
Musculoskeletal: Reports No Symptoms
Skin: Reports No Symptoms
Neurological: Reports No Symptoms
Endocrine: Reports No Symptoms
Hematologic/Lymphatic: Reports No Symptoms
Psych: Reports No Symptoms
Physical Exam
Vital Signs
Vital Signs
Temp Pulse Resp BP Pulse Ox
98.0 F 67 10 105/56 98
02/23/25 15:50 02/23/25 16:30 02/23/25 16:30 02/23/25 16:30 02/23/25 16:35
Physical Exam
General: Well Developed, Well Nourished, No Apparent Distress and Comfortable
HEENT: Normocephalic, Moist Mucous Membranes and Atraumatic
Respiratory: Clear
Cardiac: S1/S2 and Regular Rhythm
Breast: Deferred by me
GI: Soft, Non Distended and Normal Bowel Sounds
Rectal: Deferred by Provider
Musculoskeletal: No Clubbing, No Cyanosis and No Edema
Neuro: Sedated (post-op) and Nonfocal/Grossly Intact
Psych: Calm
Laboratory Results
-
Laboratory Results
02/09/25 11:10
Total Bilirubin 0.6 mg/dl (0.2-1.3) 02/09/25 11:10
AST 30 U/L (14-36) 02/09/25 11:10
ALT 32 U/L (0-35) 02/09/25 11:10
Alkaline Phosphatase 73 U/L (38-126) 02/09/25 11:10
Impression / Plan
-
IMPRESSION/PLAN:
#right hemicolectomy
for suspected malignant neoplasm of ascending colon
- continue to follow with Colorectal
#hypertension
- hold amlodipine, losartan and metoprolol until improvement in BP
#hyperlipidemia
- continue aspirin, ezetimibe and rosuvastatin
#COPD
- continue albuterol HFA and ipratropium bromide
#hypothyroid
- continue levothyroxine
#depression/anxiety
- continue alprazolam, clonazepam, sertraline and temazepam
#GERD
- continue omeprazole
#right breast cancer (DCIS)
follows with Dr. Garrido
#squamous cell carcinoma of right middle lung
s/p radiation
follows with Dr. Hernandez
#Hx thyroid cancer
s/p thyroidectomy
Code status: full code
DVT Prophylaxis: SCDs
[2025-02-23] MEDS: NEURONTIN PO (18:11)
[2025-02-23] MEDS: SINGULAIR PO (18:11)
[2025-02-23] MEDS: TYLENOL PO (18:11)
[2025-02-23] MEDS: ZOLOFT PO (18:11)
--- NOTE | 2025-02-23 18:11 | PTCARENOTE ---
received pt from OR post op, pt extremely drowsy/ confused. Pt son at bedside, d/t patients confusion and inability to follow directions, 1800 PO medications were held. Pt son agreeable, updated on plan of care.
[2025-02-23] MEDS: TORADOL 10 MG IV ×2 (18:13→21:11)
--- NOTE | 2025-02-23 18:34 | W.PN.UPDATE ---
Update Note
Progress Note Update
This is an addendum to H&P made by Brittni Hogue on 02/23/2025. �Patient seen and examined independently with DOUBLE SPINDLE SHAPER OPERATOR.
84-year-old female past medical history of ascending colon mass, hypertension, hyperlipidemia, COPD, hypothyroidism, anxiety/depression, GERD, right breast cancer, squamous cell carcinoma right middle lobe, thyroid cancer, underwent robotic right
hemicolectomy with extensive lysis of adhesions, small bowel resection.
75 cc blood loss. �Received 3 L IV fluids in OR.
Mildly hypotensive with blood pressure 90s after surgery. �Continue maintenance IV fluids. �Hold antihypertensive medications. �NPO. �On 2 L oxygen after anesthesia, try to wean. �Check BMP and CBC.
[2025-02-23] MEDS: ATROVENT NEBULES 0.5 MG INH (19:28)
[2025-02-23] MEDS: VENTOLIN NEBULES 2.5 MG INH (19:28)
[2025-02-23] MEDS: ZETIA PO ×2 (21:10→21:15)
[2025-02-23] MEDS: CRESTOR 40 MG PO (21:10)
[2025-02-23] MEDS: NEURONTIN 400 MG PO (21:10)
[2025-02-23 22:22] LABS: Hematocrit 30.6 % (37.0-47.0); Hemoglobin 10.6 g/dL (12.0-16.0); Mean Corp Hgb Conc. 34.6 g/dL (33.0-37.0); Mean Corpuscular Volume 97.1 fL (81.0-99.0); Nucleated Red Blood Cells % 0 %; Platelet Count 212 10^3/uL (130-400); Red Cell Dist. Width 14.5 % (11.5-14.5)
[2025-02-24] VITALS (10 sets, daily range): BP systolic 114–147; BP diastolic 51–84; PULSE 83; O2SAT 94; BMI 24.8
[2025-02-24 00:28] LABS: ALT (SGPT) 34 U/L (0-35); AST (SGOT) 39 U/L (14-36); Albumin 4.2 g/dl (3.5-5.0); Alkaline Phosphatase 70 U/L (38-126); Blood Urea Nitrogen 11 mg/dl (7-17); Calcium 7.2 mg/dl (8.4-10.2); Carbon Dioxide 23 mmol/L (22-30); Chloride 109 mmol/L (98-107); Estimated Creatinine Clearance 61 ml/min; Glucose 139 mg/dl (70-99); Potassium 3.4 mmol/L (3.5-5.1); Sodium 140 mmol/L (135-145); Total Protein 6.4 g/dl (6.3-8.2); eGFR > 60.00
[2025-02-24] MEDS: TYLENOL 1000 MG PO ×5 (00:41→23:45)
[2025-02-24] MEDS: SYNTHROID 100 MCG PO (04:18)
[2025-02-24] MEDS: TORADOL 10 MG IV ×4 (04:19→21:09)
[2025-02-24] MEDS: ROXICODONE 5 MG PO ×2 (04:36→17:59)
--- NOTE | 2025-02-24 04:49 | PTCARENOTE ---
Assumed care for patient overnight, received report from gabriela RN. Pt AAOx3, forgetful at times. NSR to SB on the monitor. Received pt on 3L NC SpO2 94%. Pt slightly dyspneic with exertion. Pt getting scheduled Tylenol and Toradol. Pt having 6/10
abdominal pain and headache. PRN Oxycodone administered. IVF cont. 5 lap sites intact with surgical glue. Abdomen has positive bowel sounds, firm and distended. Acuña draining clear yellow urine. Pt has call carson within reach.
[2025-02-24 05:01] LABS: Hematocrit 30.0 % (37.0-47.0); Hemoglobin 10.1 g/dL (12.0-16.0); Mean Corp Hgb Conc. 33.7 g/dL (33.0-37.0); Mean Corpuscular Volume 98.7 fL (81.0-99.0); Nucleated Red Blood Cells % 0 %; Platelet Count 174 10^3/uL (130-400); Red Cell Dist. Width 14.5 % (11.5-14.5)
[2025-02-24 05:13] LABS: Blood Urea Nitrogen 10 mg/dl (7-17); Calcium 7.2 mg/dl (8.4-10.2); Carbon Dioxide 24 mmol/L (22-30); Chloride 108 mmol/L (98-107); Estimated Creatinine Clearance 61 ml/min; Glucose 134 mg/dl (70-99); Magnesium 2.7 mg/dl (1.6-2.3); Potassium 3.4 mmol/L (3.5-5.1); Sodium 140 mmol/L (135-145); eGFR > 60.00
[2025-02-24] MEDS: ATROVENT NEBULES 0.5 MG INH ×2 (07:07→19:11)
[2025-02-24] MEDS: VENTOLIN NEBULES 2.5 MG INH ×2 (07:07→19:11)
--- NOTE | 2025-02-24 07:37 | W.PN.CRS1 ---
Today's Communication / Plan
-
As above
Assessment/Plan
-
84-year-old female with PMH of asthma, COPD, bronchiectasis, CVA (17 years ago, no residual deficits), gout, HLD, HTN, hypothyroidism, GERD, recent lung cancer s/p RT, remote thyroid cancer s/p thyroidectomy, right breast DCIS (pending treatment
with Dr. Garrido), who presents for elective surgery due to right colon mass (01/15, colonoscopy showing proximal ascending colon mass with path showing adenomatous changes and ulceration, endoscopically not resectable)
POD 1 robotic right hemicolectomy, intraoperative colonoscopy, SBR
- Brief findings: No residual mass was found in the right colon; remainder of colon scoped without any mass; identified small bowel lesion performed SBR
AFVSS
WBC 4.6, Hb 10.1 from 10.6, CR 0.5, UOP 400 mL / 12 hours
� Continue clears; recommend NPO if any N/V; keep IVF at 50
� Pain control with Tylenol, low-dose Toradol, oxycodone and Dilaudid as needed; continue Entereg
� Start DVT PPx with subQ heparin Q8
� Ambulate 3 times daily, encourage OOB and I-S; appreciate PT
� DC Acuña, monitor for void
� Appreciate hospitalist consult
Subjective Data
Subjective Data
Date of Service: February 24, 2025
Last night, was a bit groggy from anesthesia.
This morning, feeling much better.
Denies any nausea or vomiting, but feels bloated.
Pain controlled.
No flatus or BMs. + Acuña
Objective Data
-
Vital Signs
Temp Pulse Resp BP Pulse Ox
98.1 F 78 16 120/69 94
02/24/25 02:55 02/24/25 07:09 02/24/25 07:09 02/24/25 04:00 02/24/25 07:09
Intake & Output
02/23/25 02/24/25 02/25/25
06:59 06:59 06:59
Intake Total 600 / 600
Output Total 450 / 450
Balance 150 / 150
Intake:
IV fluids (Total) 600 / 600
Output:
Urine, Acuña 450 / 450
Lab Results
02/24/25 04:32
02/24/25 04:32
Physical Exam
-
General: No Acute Distress and AOx3
HEENT: Grossly Normal
Abdomen: Soft, Distended (Mildly to moderately distended with a little tympany), Tender (Appropriately tender near incisions), No Guarding and No Rebound
Skin: Warm and Dry
[2025-02-24] MEDS: PROTONIX 40 MG PO (09:02)
[2025-02-24] MEDS: ENTEREG 12 MG PO ×2 (09:02→19:29)
[2025-02-24] MEDS: NEURONTIN 400 MG PO ×3 (09:03→21:08)
[2025-02-24] MEDS: HEPARIN 5000 UNITS SC ×3 (09:04→23:46)
--- NOTE | 2025-02-24 09:55 | W.PN.CRS1 ---
Today's Communication / Plan
-
Clears
DC Acuña
Out of bed
Heparin subcu for DVT prophylaxis
Assessment/Plan
-
POD#1 Robotic right hemicolectomy
WBC: 4.6, Hgb 10.4
Vitals normal
- Advance diet to clears
- Continue IV fluids until tolerating p.o.
- Out of bed as tolerated
- Discontinue Acuña
- Start heparin subcu for DVT prophylaxis. Teds and stays in place.
- OR pathology pending
- Will eventually need Eliquis for DVT prophylaxis for 1 month as an outpatient
- Pain control: Tylenol and Toradol standing. Dilaudid as needed.
Subjective Data
Subjective Data
Date of Service: February 24, 2025
Patient states she feels well. She is just a little sore. She denies nausea or vomiting. She is thirsty.
Objective Data
-
Vital Signs
Temp Pulse Resp BP Pulse Ox
97.9 F 86 16 115/63 93
02/24/25 07:05 02/24/25 08:00 02/24/25 08:00 02/24/25 08:00 02/24/25 08:00
Intake & Output
02/23/25 02/24/25 02/25/25
06:59 06:59 06:59
Intake Total 600 / 600
Output Total 450 / 450 300 / 300
Balance 150 / 150 -300 / -300
Intake:
IV fluids (Total) 600 / 600
Output:
Urine, Acuña 450 / 450 300 / 300
Lab Results
02/24/25 04:32
02/24/25 04:32
Physical Exam
-
General: No Acute Distress and AOx3
Abdomen: Soft, Non Distended and Tender (Mild around incision)
Skin: Warm and Dry
[2025-02-24] MEDS: NORMOSOL-R/PLASMALYTE-A 1000 IV (11:05)
--- NOTE | 2025-02-24 13:11 | PTCARENOTE ---
Pt assisted OOB to bathroom with 1 assist. Pt voided successfully. unstady gait, requires assistance.
--- NOTE | 2025-02-24 14:43 | W.PN.HOSP.TC ---
Today's Communication/Plan
-
See plan
Assessment / Plan
Assessment / Plan
Impression.
Status post robotic right hemicolectomy on 02/23
Other conditions:
Essential hypertension
COPD
Dyslipidemia
Hypothyroidism
Right breast carcinoma.
Squamous cell carcinoma right middle lobe
Thyroid carcinoma.
Plan:
Postoperative care as per surgical team.
Acuña removed.
Clear liquid diet.
Monitor hemoglobin
Adjust analgesic regimen with attempt to wean off IV morphine
Continue IV Toradol and oxycodone
Essential hypertension per
Preadmission regimen including amlodipine losartan metoprolol
Resume metoprolol holding amlodipine and losartan monitor blood pressure
COPD
Fairly recently diagnosis of squamous cell carcinoma at the right middle lobe.
Stable respiratory status
Anxiety
Multiple benzodiazepines listed including Xanax, Klonopin, temazepam.
Resume Xanax as needed for anxiety. Hold rest. Will need reassessment of preadmission prescriptions
Continue sertraline
Chronic pain neuropathy. Resume gabapentin
Hypothyroidism. On replaced
Anticipated Discharge: 24 - 48 hours
Subjective/Interval History
-
Date of Service: February 24, 2025
Objective Data
-
Labs:
Laboratory Results
02/24/25
04:32
WBC 4.6 L
Hgb 10.1 L
Hct 30.0 L
Plt Count 174
Sodium 140
Potassium 3.4 L
Chloride 108 H
Carbon Dioxide 24
BUN 10
Creatinine 0.5 L
Glucose 134 H
Calcium 7.2 L
Vital Signs:
Vital Signs
Temp Pulse Resp BP Pulse Ox
97.9 F 86 16 115/63 93
02/24/25 07:05 02/24/25 08:00 02/24/25 08:00 07/02/25 08:00 02/24/25 08:00
I&O
02/23/25 02/24/25 02/25/25
06:59 06:59 06:59
Intake Total 600 / 600
Output Total 450 / 450 550 / 550
Balance 150 / 150 -550 / -550
Physical Exam
-
General: Well Developed and No Apparent Distress
HEENT: Normocephalic, Atraumatic and Moist Mucous Membranes
Respiratory: Clear to Auscultation
Cardiac: Regular Rhythm and S1/S2; Negative Murmur, Rub or Gallop
GI: Soft, Nontender, Nondistended and Normal Bowel Sounds; Negative Organomegaly
Rectal: Deferred by Provider
Musculoskeletal: No Clubbing, No Cyanosis and No Edema
Skin: Negative Rash
Neuro: Nonfocal/Grossly Intact
[2025-02-24] MEDS: ZOLOFT 100 MG PO (17:19)
[2025-02-24] MEDS: SINGULAIR 10 MG PO (17:19)
--- NOTE | 2025-02-24 17:33 | W.PN.UPDATE ---
Update Note
Progress Note Update
Checked in on patient; she is doing well; still bloated, still no flatus or BMs, but denies any N/V; she does feel a COPD exacerbation coming on, with increased mucus, but no increased work of breathing; will consult pulmonology, she sees
Anthony as an outpatient for her bronchiectasis and lung cancer
--- NOTE | 2025-02-24 17:36 | PTCARENOTE ---
Received patient from IMU. Patient is AAOx2, confused about time. Patient is forgetful, bed alarm placed. Call carson in reach. Patient c/o feeling congested in her lungs. Surgeon at bedside, pulmonary consult placed.
--- NOTE | 2025-02-24 17:41 | PTCARENOTE ---
Patient ambulated short distance with walker and assist x1. Patient is very unsteady.
[2025-02-24] MEDS: LOPRESSOR 100 MG PO (19:26)
[2025-02-24] MEDS: MUCINEX 600 MG PO (19:27)
[2025-02-24] MEDS: ZETIA 10 MG PO (21:08)
[2025-02-24] MEDS: CRESTOR 40 MG PO (21:10)
[2025-02-24] MEDS: XANAX 0.25 MG PO (21:15)
[2025-02-25] MEDS: TORADOL 10 MG IV (03:34)
[2025-02-25] MEDS: SYNTHROID 100 MCG PO (03:34)
[2025-02-25 06:00] VITALS: BMI 24.2
[2025-02-25] MEDS: TYLENOL PO (06:09)
[2025-02-25 07:30] VITALS: BP 128/77
[2025-02-25] MEDS: ATROVENT NEBULES 0.5 MG INH (07:38)
[2025-02-25] MEDS: VENTOLIN NEBULES 2.5 MG INH (07:38)
[2025-02-25 07:56] LABS: Hematocrit 26.9 % (37.0-47.0); Hemoglobin 9.0 g/dL (12.0-16.0); Mean Corp Hgb Conc. 33.5 g/dL (33.0-37.0); Mean Corpuscular Volume 98.5 fL (81.0-99.0); Nucleated Red Blood Cells % 0 %; Platelet Count 170 10^3/uL (130-400); Red Cell Dist. Width 14.8 % (11.5-14.5)
[2025-02-25 08:30] LABS: Blood Urea Nitrogen 8 mg/dl (7-17); Calcium 7.4 mg/dl (8.4-10.2); Carbon Dioxide 28 mmol/L (22-30); Chloride 110 mmol/L (98-107); Estimated Creatinine Clearance 61 ml/min; Glucose 83 mg/dl (70-99); Potassium 3.0 mmol/L (3.5-5.1); Sodium 141 mmol/L (135-145); eGFR > 60.00
--- NOTE | 2025-02-25 09:15 | W.PN.CRS1 ---
Today's Communication / Plan
-
hold toradol/heparin sq
advance to fulls
Assessment/Plan
-
84-year-old female with PMH of asthma, COPD, bronchiectasis, CVA (17 years ago, no residual deficits), gout, HLD, HTN, hypothyroidism, GERD, recent lung cancer s/p RT, remote thyroid cancer s/p thyroidectomy, right breast DCIS (pending treatment
with Dr. Garrido), who presents for elective surgery due to right colon mass (01/15, colonoscopy showing proximal ascending colon mass with path showing adenomatous changes and ulceration, endoscopically not resectable)
POD 1 robotic right hemicolectomy, intraoperative colonoscopy, SBR
- Brief findings: No residual mass was found in the right colon; remainder of colon scoped without any mass; identified small bowel lesion performed SBR
AFVSS
WBC 4.2 (4.6), Hb 9.0 (10.1)
� Advance to full liquids
� Pain control with Tylenol, oxycodone and Dilaudid as needed; continue Entereg. Hold Toradol due to bleeding.
� Hold heparin sq due to bleeding. Continue TEDS/SCDS.
� Ambulate 3 times daily, encourage OOB and I-S; appreciate PT
� Voiding post ramírez removal
� Appreciate hospitalist consult
- D/C IVfs when tolerating po
- OR pathology pending
- Monitor H/H
Subjective Data
Procedure
02/23/2025- Robotic right hemicolectomy, extensive lysis of adhesions greater than 1.5 hours, mesenteric angiography with ICG, colonoscopy, small bowel resection
Subjective Data
Date of Service: February 25, 2025
Patient states she does not have any abdominal pain. She still complains of a headache. She is passing flatus. She passed a dark bloody bowel movement yesterday. She has had three bowel movements in total.
Objective Data
-
Vital Signs
Temp Pulse Resp BP Pulse Ox
98.1 F 78 16 128/77 96
02/25/25 07:30 02/25/25 07:45 02/25/25 07:45 02/25/25 07:30 02/25/25 07:45
Intake & Output
02/24/25 02/25/25 02/26/25
06:59 06:59 06:59
Intake Total 600 / 600 660 / 660
Output Total 450 / 450 850 / 850
Balance 150 / 150 -190 / -190
Intake:
Oral fluids 660 / 660
IV fluids (Total) 600 / 600
Output:
Urine, Ramírez 450 / 450 300 / 300
Urine, Voided 550 / 550
Other:
Number of approximated MODERATE 3 1
amounts of urine
Lab Results
02/25/25 07:05
02/25/25 07:05
Physical Exam
-
General: No Acute Distress and AOx3
Abdomen: Soft, Non Distended and Non Tender
Skin: Warm and Dry
[2025-02-25] MEDS: NEURONTIN 400 MG PO ×3 (09:32→21:28)
[2025-02-25] MEDS: PROTONIX 40 MG PO (09:32)
[2025-02-25] MEDS: LOPRESSOR 100 MG PO ×2 (09:32→20:34)
[2025-02-25] MEDS: MUCINEX 600 MG PO ×2 (09:32→20:35)
[2025-02-25] MEDS: HEPARIN SC (09:33)
[2025-02-25] MEDS: ENTEREG 12 MG PO ×2 (09:33→20:34)
[2025-02-25] MEDS: TYLENOL 1000 MG PO ×2 (09:34→18:37)
[2025-02-25] MEDS: ROXICODONE 5 MG PO (09:36)
[2025-02-25] MEDS: KCL 40 MEQ PO (11:06)
--- NOTE | 2025-02-25 12:35 | CM ---
CM following re: discharge planning.
Reviewed pt's chart, met with pt.
Pt is an 84 year old female, admitted with primary dx of POD 1 robotic right hemicolectomy, intraoperative colonoscopy, SBR.
Pt reports she lives alone in a condo, 14 steps to enter, has 2 supportive children. Pt reports she has a walker, cane, shower chair, current with [facility]. Pt expressed her desire to return back home with resumptions of [facility] and family support. Pt
stated her son will be able to transport her hoe at discharge.
A referral to [facility] made.
PCP: Franklin Flood
Pharmacy: [facility].
D/c plan: home with resumptions of [facility] and family support. Son to transport at discharge.
CM will follow with discharge plan updates as hospitalization progresses
--- NOTE | 2025-02-25 13:11 | CM ---
Addendum entered by Tejinder Phillips 02/25/25 15:43:
Updated PT and OT evaluations noted - home PT/OT recommended. pt layo caldwell, expressed her agreement and pt requested [facility]. A referral to [facility] made.
D/C plan: home with [facility] and family support.
Original Note:
CM following re: discharge planning.
Reviewed pt's chart, met with pt.
Pt is an 84 year old female, admitted with primary dx of POD 1 robotic right hemicolectomy, intraoperative colonoscopy, SBR.
Pt reports she lives alone in an independent apartment at [facility], has 4 supportive children, ambulates with a walker. No VN or SNF history. Pt expressed her desire to return back home at discharge.
PT and OT evaluations noted - SNF level of care recommended. Pt is aware, expressed her agreement. A list of SNFs provided, pt preferred [facility]. A referral to [facility] made.
PCP: Tiffanie Padron
Pharmacy: [facility].
D/C plan: [facility] when medically stable and an auth available.
CM will follow to assist pt with discharge to [facility].
[2025-02-25] MEDS: SODIUM CHLORIDE 3% FOR INHALATION 1 VIAL INH ×2 (13:30→20:27)
--- NOTE | 2025-02-25 13:51 | CON.PUL ---
Consultation
Consultation Request
Date/Time Consultation Requested: 02/24/2025
Date/Time Consultation Performed: 02/25/2025
Medical History
-
Chief Complaint: Difficulty expectorating
History of Present Illness:
Patient is a very pleasant 84-year-old female who was admitted to the hospital for elective right hemicolectomy for ascending colon mass. Overnight, patient felt mildly short of breath with difficulty expectoration which has responded well to as
needed albuterol/ipratropium. Pulmonary consultation was requested for further input.
Patient has a known history of mild intermittent asthma, allergic rhinitis and mild bilateral lower lobe bronchiectasis with [id number] smoking history. At baseline she is on singular daily and uses albuterol/ipratropium twice a day, reportedly
newly prescribed. This morning, patient denies any cough, wheezing, shortness of breath or sense of chest tightness. No purulent expectoration noted. Patient is able to bring clear to whitish phlegm occasionally.
Past medical history.
Hyperlipidemia, right-sided breast cancer, right middle lobe squamous cell carcinoma, thyroid cancer, hypertension, history of TIA, fibromyalgia, history of gout.
Surgical history. Recent right hemicolectomy. Breast biopsy, bronchoscopy and biopsy with EBUS TBNA right middle lobe. Thyroid surgery. Hysterectomy, bilateral hip replacement.
Social history. Patient has about [id number] smoking history, quit in 2023. No reported use of marijuana, vaping or e-cigarettes. No occupational exposures reported.
Family history. No reported history of lung disease in the family.
Allergies / Home Medications
Allergies
Allergy/AdvReac Type Severity Reaction Status Date / Time
pollen extracts Allergy Sneezing, Verified 02/23/25 07:24
runny
nose,
itchy eyes
- seasonal
Home Medications
�Medication �Instructions �Recorded �Confirmed �Last Taken �Type
metoprolol tartrate 100 mg tablet 100 mg PO BID Blood pressure 09/08/12 02/23/25 02/22/25 22:00 History
pantoprazole 40 mg tablet,delayed 40 mg PO DAILY Gastrointestinal 02/24/21 02/23/25 02/22/25 History
release issue
amlodipine 10 mg tablet 10 mg PO HS Blood Pressure 12/01/22 02/23/25 02/22/25 22:00 History
losartan 100 mg tablet 100 mg PO DAILY Blood Pressure 12/01/22 02/23/25 02/22/25 10:00 History
Calcium Gummies 2 gummy PO DAILY Supplement 11/11/24 02/23/25 02/16/25 History
aspirin 325 mg tablet 325 mg PO HS Blood Clot 11/11/24 02/23/25 02/16/25 History
Prevention/Tx
clonazepam 1 mg tablet (Klonopin) 1 mg PO DAILY PRN anxiety/panic 11/11/24 02/23/25 02/21/25 History
attacks
ezetimibe 10 mg tablet 10 mg PO HS High Cholesterol 11/11/24 02/23/25 02/21/25 History
gabapentin 400 mg capsule 400 mg PO TID Pain 11/11/24 02/23/25 02/22/25 22:00 History
levothyroxine 100 mcg tablet 100 mcg PO 0300 Thyroid 11/11/24 02/23/25 02/21/25 History
montelukast 10 mg tablet 10 mg PO .AFTERNOON Lung/Breathing 11/11/24 02/23/25 02/22/25 History
Issues
multivitamin with minerals-folic 2 tab PO DAILY Supplement 11/11/24 02/23/25 02/16/25 History
acid 200 mcg chewable tablet
(Multivitamin Gummies)
omeprazole 20 mg tablet,delayed 20 mg PO DAILY Gastrointestinal 11/11/24 02/23/25 02/22/25 10:00 History
release Issue
rosuvastatin 40 mg tablet 40 mg PO HS High Cholesterol 11/11/24 02/23/25 02/22/25 22:00 History
sertraline 100 mg tablet 100 mg PO .AFTERNOON Mental 11/11/24 02/23/25 02/22/25 12:00 History
Health/Anxiety
temazepam 15 mg capsule 15 mg PO HS PRN sleep 11/11/24 02/23/25 02/22/25 22:00 History
vit C 250 mg-vit E 90 mg-zinc 40 1 tab PO BID Supplement 11/11/24 02/23/25 02/16/25 History
mg-copper 1 [id number]
capsule (PreserVision AREDS-2)
albuterol sulfate 2.5 mg/3 mL 2.5 mg inhalation BID 01/15/25 02/23/25 02/22/25 History
(0.083 %) solution for nebulization Lung/Breathing Issues
acetaminophen 500 mg tablet 500 mg PO Q6H PRN pain 02/08/25 02/23/25 02/18/25 History
alprazolam 0.25 mg tablet (Xanax) 0.25 mg PO BID PRN anxiety 02/08/25 02/23/25 Unknown History
ibuprofen 200 mg tablet 400 mg PO Q6H PRN pain 02/08/25 02/23/25 02/16/25 History
ipratropium bromide 0.02 % 0.5 mg inhalation BID 02/08/25 02/23/25 02/22/25 History
solution for inhalation Lung/Breathing Issues
metronidazole 500 mg tablet 500 mg PO PRE OP Infection 02/08/25 02/23/25 02/22/25 22:00 History
neomycin 500 mg tablet 1 g PO PRE OP Infection 02/08/25 02/23/25 02/22/25 22:00 History
peg 3350-electrolytes 1 dose PO DIRECTED PREOP 02/08/25 02/23/25 Unknown History
Review of Systems
-
Hematologic/Lymphatic: Other (All 14 systems reviewed and negative except as stated above in the history of present illness.)
Vitals / Labs / Diagnostic Testing
Vital Signs
Temp Pulse Resp BP Pulse Ox
98.1 F 69 16 128/77 96
02/25/25 07:30 02/25/25 13:33 02/25/25 13:33 02/25/25 07:30 02/25/25 13:33
Lab Data
02/25/25 07:05
Diagnostic Testing:
Physical Exam
-
HEENT: Normocephalic
Cardiovascular: S1/S2
Respiratory: Clear and Other (No wheezing or rhonchi)
Neurology: Awake and Alert
Skin: Warm
General: Comfortable
Assessment
-
#1. History of bronchiectasis
- Patient has known history of bibasilar lower lobe mild bronchiectasis.
- Current presentation is more suggestive of postop atelectasis and thickened mucus rather than acute exacerbation of bronchiectasis
- Add Acapella valve to help with airway clearance
- Start hypertonic saline, 3%, nebulized twice a day, continue albuterol and ipratropium as ordered
- Chest x-ray reviewed, suggestive of mild left lower lobe atelectasis
- Patient does not have any increasing expectoration or change in color of phlegm, has normal WBC count, afebrile, hold off any antibiotics or steroids for bronchiectasis
- Resume outpatient follow-up with Dr. Mcclendon
#2. Left lower lobe atelectasis (s/p recent hemicolectomy)
- Sit in chair as tolerated, increase activity
- Start incentive spirometry, flutter valve added for airway clearance
#3. History of Asthma and Allergic rhinitis
- Suspect high Th2, eosinophil count ranging between 200-600
- Continue Singulair 10 mg daily
- No wheezing on exam, continue albuterol/ipratropium
- No reported history of asthma exacerbation within the last year
- May consider addition of inhaled corticosteroid versus LABA/ICS as needed therapy. This can be pursued as an outpatient, patient follows up with Dr. Mcclendon at [facility]
#4. h/o Smoking with ?COPD
- More than 60-[id number]-lhxe smoking history
- Patient quit in 2023
- Pulmonary function testing not suggestive of underlying obstructive airway disease
- Pulmonary function testing, 10/2024. FEV 104%, FVC 96%, FEV1/FVC 79. DLCO mildly reduced at 64%. Total lung capacity 75%. Mild restriction and mildly reduced diffusion capacity without evidence of obstruction.
#4. RML squamous cell carcinoma (Diagnosed 10/2024)
- S/p radiation therapy
- Follow-up CT chest in 01/2025 shows stable to slightly decreased size of right middle lobe nodule
- Outpatient follow-up with medical oncology, radiation oncology and pulmonary service
Other medical diagnosis:
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
- Hypertension, hyperlipidemia
- Hypothyroidism
- Colonic mass, S/p robotic right hemicolectomy on 02/23/2025. Colorectal surgery and case
- History of thyroid cancer
Total time spent on this consultation/encounter _65_ minutes which includes review of history, physical exam, medications, laboratory data, personal review of imaging, extensive review of outpatient records, discussion with care team and respiratory
therapy.
Data:
CT Chest 01/2025: 1. There is stable to slightly decreased size of the nodule within the right middle lobe consistent with known malignancy. There is no evidence of new metastatic disease within the chest.
2. Stable mild bronchiectasis and bronchial wall thickening within the bilateral lower lobes and to a lesser extent the right middle lobe which may be sequelae of chronic endobronchial infection.
Robotic Bronchoscopy 10/2024: Right middle lobe biopsy positive for squamous cell carcinoma.
Lexiscan 06/2024: Negative for ischemia.
ECHO 06/2024: Normal biventricular size and systolic function without regional wall motion
abnormality.
No significant valvular disease.
Interatrial septal aneurysm is present. In limited views, unable to rule out
shunting via color flow Doppler.
[2025-02-25 14:43] VITALS: BP 117/73; BP 129/80; PULSE 73
--- NOTE | 2025-02-25 15:18 | W.PN.HOSP.TC ---
Today's Communication/Plan
-
Monitor for recurrent hematochezia
Follow hemoglobin
Full liquid diet
Reinstate rest of the antihypertensive medications slowly.
Assessment / Plan
Assessment / Plan
Impression.
Status post robotic right hemicolectomy on 02/23
Acute blood loss anemia
Other conditions:
Essential hypertension
COPD/bronchiectasis
Dyslipidemia
Hypothyroidism
Right breast carcinoma.
Squamous cell carcinoma right middle lobe
Thyroid carcinoma.
Plan:
Postoperative care as per surgical team.
Acuña removed.
Full liquid diet
Monitor hemoglobin
Adjust analgesic regimen with attempt to wean off IV morphine
Continue IV Toradol and oxycodone
Acute blood loss anemia, postoperative. Hemoglobin trending down from 11.4-9
Noted with episode of hematochezia on 02/25. So far self-limited. Hold heparin. Follow hemoglobin.
Essential hypertension
Preadmission regimen including amlodipine losartan metoprolol
Resume metoprolol holding amlodipine and losartan monitor blood pressure
COPD/bronchiectasis
Fairly recently diagnosis of squamous cell carcinoma at the right middle lobe.
Stable respiratory status
Pulmonary following
Incentive spirometry
Nebs/hypertonic sodium chloride nebulizations
Anxiety
Multiple benzodiazepines listed including Xanax, Klonopin, temazepam.
Resume Xanax as needed for anxiety. Hold rest. Will need reassessment of preadmission prescriptions
Continue sertraline
Chronic pain neuropathy. Resume gabapentin
Hypothyroidism. On replaced
Anticipated Discharge: 24 - 48 hours
Subjective/Interval History
-
Date of Service: February 25, 2025
Objective Data
-
Labs:
Laboratory Results
02/25/25 02/25/25
07:05 15:00
WBC 4.2 L
Hgb 9.0 L Pending
Hct 26.9 L Pending
Plt Count 170
Sodium 141
Potassium 3.0 L
Chloride 110 H
Carbon Dioxide 28
BUN 8
Creatinine 0.4 L
Glucose 83
Calcium 7.4 L
Vital Signs:
Vital Signs
Temp Pulse Resp BP Pulse Ox
98.1 F 69 16 128/77 96
02/25/25 07:30 02/25/25 13:33 02/25/25 13:33 02/25/25 07:30 02/25/25 13:33
I&O
02/24/25 02/25/25 02/26/25
06:59 06:59 06:59
Intake Total 600 / 600 660 / 660 480 / 480
Output Total 450 / 450 850 / 850
Balance 150 / 150 -190 / -190 480 / 480
Physical Exam
-
General: Well Developed and No Apparent Distress
HEENT: Normocephalic, Atraumatic and Moist Mucous Membranes
Respiratory: Clear to Auscultation
Cardiac: Regular Rhythm and S1/S2; Negative Murmur, Rub or Gallop
GI: Soft, Nontender, Nondistended and Normal Bowel Sounds; Negative Organomegaly
Rectal: Deferred by Provider
Musculoskeletal: No Clubbing, No Cyanosis and No Edema
Skin: Negative Rash
Neuro: Nonfocal/Grossly Intact
[2025-02-25 15:20] VITALS: BP 132/80
--- NOTE | 2025-02-25 15:59 | PN.CDI ---
CDI
- -
CDI:
Physician Documentation Request
Admit Date: 02/23/25 07:13
Dear Doctor Ludwig,
Patient admitted for hemicolectomy.
02/25 Colorectal PN: 'Her potassium is low and will be replaced.'
02/25 Potassium chloride 40 meq PO administered.
Laboratory Tests
02/23/25 02/24/25 02/25/25
23:55 04:32 07:05
Potassium 3.4 L 3.4 L 3.0 L
Based on the above, could you clarify in the progress notes, the appropriate diagnosis, if significant, that supports the above abnormalities and additional evaluation, monitoring and/or treatment rendered:
Hypokalemia
Abnormal lab value insignificant
Other
Use of terms such as suspected, likely, concern for, or probable (associated with a specific diagnosis that is being evaluated, monitored, or treated as if it exists) are acceptable and can be coded in the inpatient setting, when documented at the
time of discharge.
Thank you,
Sabrina Carmichael RN, BSN
CDI Specialist
Available via [employer] text
Please use your independent medical judgment in providing your response.
[2025-02-25] MEDS: SINGULAIR 10 MG PO (18:36)
[2025-02-25] MEDS: ZOLOFT 100 MG PO (18:36)
[2025-02-25 19:49] LABS: Hemoglobin 9.5 g/dL (12.0-16.0)
[2025-02-25] MEDS: TRANEXAMIC ACID 100 IV (19:55)
[2025-02-25] MEDS: DUONEB 3 ML INH (20:27)
[2025-02-25] MEDS: ZETIA 10 MG PO (21:28)
[2025-02-25] MEDS: CRESTOR 40 MG PO (21:28)
[2025-02-25 23:11] VITALS: BP 126/80
[2025-02-26] VITALS (8 sets, daily range): BP systolic 110–127; BP diastolic 70–88; BMI 23.8
[2025-02-26] MEDS: TYLENOL PO (00:33)
[2025-02-26] MEDS: SYNTHROID 100 MCG PO (03:31)
[2025-02-26] MEDS: TYLENOL 1000 MG PO ×4 (06:08→23:48)
--- NOTE | 2025-02-26 07:08 | W.PN.HOSP.TC ---
Today's Communication/Plan
-
See plan
Assessment / Plan
Assessment / Plan
Physical Exam
General: Well Developed and No Apparent Distress
HEENT: Normocephalic, Atraumatic and Moist Mucous Membranes
Respiratory: Clear to Auscultation Bilaterally
Cardiac: Regular Rhythm and S1/S2
GI: Soft, Nontender, Nondistended and Normal Bowel Sounds
Musculoskeletal: No Cyanosis and No Edema
Skin: Warm. Dry.
Neuro: Nonfocal/Grossly Intact
Impression.
Status post robotic right hemicolectomy on 02/23
Acute blood loss anemia
Other conditions:
Essential hypertension
COPD/bronchiectasis
Dyslipidemia
Hypothyroidism
Right breast carcinoma.
Squamous cell carcinoma right middle lobe
Thyroid carcinoma.
Plan:
Postoperative care as per surgical team.
Acuña removed.
Diet downgraded to NPO (except medications) given episodes of bleeding � if patient continues bleeding, may require colonoscopy or CTA abdomen/pelvis
Monitor hemoglobin
Adjust analgesic regimen with attempt to wean off IV morphine
Continue IV Toradol and oxycodone
SIGN-OUT: [address] 84F CRS consult for medical comanagement. Status post right hemicolectomy.
Acute blood loss anemia, postoperative. Hemoglobin trending down from 11.4-9
Noted with recurrent episodes of hematochezia. So far self-limited. Hold heparin/chemical DVT prophylaxos. Follow hemoglobin.
Dose of TXA and 1 pack of platelets (takes aspirin at home) as per surgery
Essential hypertension
Preadmission regimen including amlodipine losartan metoprolol
Continue metoprolol holding amlodipine and losartan monitor blood pressure
COPD/bronchiectasis
Fairly recently diagnosis of squamous cell carcinoma at the right middle lobe.
Stable respiratory status
Pulmonary following
Incentive spirometry
Nebs/hypertonic sodium chloride nebulizations
Anxiety
Multiple benzodiazepines listed including Xanax, Klonopin, temazepam.
Resume Xanax as needed for anxiety. Hold rest. Will need reassessment of preadmission prescriptions
Continue sertraline
Chronic pain neuropathy. Resume gabapentin
Hypothyroidism. On Levothyroxine.
Anticipated Discharge: > 48 hours
Subjective/Interval History
-
Date of Service: February 26, 2025
Patient was seen and examined. She reported abdominal soreness as expected but denied chest pain, shortness of breath or any other complaints.
Objective Data
-
Labs:
Laboratory Results
02/25/25 02/25/25 02/26/25
15:00 19:41 06:06
WBC Pending
Hgb Cancelled 9.5 L Pending
Hct Cancelled Pending
Plt Count Pending
Sodium Pending
Potassium Pending
Chloride Pending
Carbon Dioxide Pending
BUN Pending
Creatinine Pending
Glucose Pending
Calcium Pending
Vital Signs:
Vital Signs
Temp Pulse Resp BP Pulse Ox
98.4 F 80 16 126/80 99
02/25/25 23:11 02/25/25 23:11 02/25/25 23:11 02/25/25 23:11 02/25/25 23:11
I&O
02/25/25 02/26/25 02/27/25
06:59 06:59 06:59
Intake Total 660 / 660 1100 / 1100
Output Total 850 / 850 500 / 500
Balance -190 / -190 600 / 600
[2025-02-26 07:25] LABS: Hematocrit 23.8 % (37.0-47.0); Hemoglobin 7.9 g/dL (12.0-16.0); Mean Corp Hgb Conc. 33.2 g/dL (33.0-37.0); Mean Corpuscular Volume 97.5 fL (81.0-99.0); Nucleated Red Blood Cells % 0 %; Platelet Count 154 10^3/uL (130-400); Red Cell Dist. Width 14.6 % (11.5-14.5)
[2025-02-26] MEDS: ENTEREG 12 MG PO ×2 (07:52→20:09)
[2025-02-26] MEDS: PROTONIX 40 MG PO (07:53)
[2025-02-26] MEDS: MUCINEX 600 MG PO ×2 (07:53→20:09)
[2025-02-26] MEDS: LOPRESSOR 100 MG PO ×2 (07:53→20:09)
[2025-02-26] MEDS: NEURONTIN 400 MG PO ×3 (07:56→21:32)
[2025-02-26 08:03] LABS: Blood Urea Nitrogen 11 mg/dl (7-17); Calcium 7.5 mg/dl (8.4-10.2); Carbon Dioxide 22 mmol/L (22-30); Chloride 108 mmol/L (98-107); Estimated Creatinine Clearance 61 ml/min; Glucose 97 mg/dl (70-99); Potassium 3.3 mmol/L (3.5-5.1); Sodium 137 mmol/L (135-145); eGFR > 60.00
[2025-02-26] MEDS: DUONEB 3 ML INH ×2 (08:13→18:15)
[2025-02-26] MEDS: SODIUM CHLORIDE 3% FOR INHALATION 1 VIAL INH ×2 (08:13→18:16)
[2025-02-26] MEDS: KCL 270 MEQ IV (09:53)
[2025-02-26] MEDS: TRANEXAMIC ACID 110 MG IV (11:04)
--- NOTE | 2025-02-26 11:18 | W.PN.PUL.V3 ---
Today's Communication / Plan
-
Supplemental oxygen as needed
Mucolytic's
Mucus clearing devices
Nebulizers
Assessment
-
#1. History of bronchiectasis
- Patient has known history of bibasilar lower lobe mild bronchiectasis.
- Current presentation is more suggestive of postop atelectasis and thickened mucus rather than acute exacerbation of bronchiectasis
- Acapella valve to help with airway clearance
- Hypertonic saline, 3%, nebulized twice a day, continue albuterol and ipratropium as ordered
- Chest x-ray reviewed, suggestive of mild left lower lobe atelectasis
- Patient does not have any increasing expectoration or change in color of phlegm, has normal WBC count, afebrile, hold off any antibiotics or steroids for bronchiectasis
- Resume outpatient follow-up with Dr. Mcclendon
#2. Left lower lobe atelectasis (s/p recent hemicolectomy)
- Sit in chair as tolerated, increase activity
- Start incentive spirometry, flutter valve added for airway clearance
#3. History of Asthma and Allergic rhinitis
- Suspect high Th2, eosinophil count ranging between 200-600
- Continue Singulair 10 mg daily
- No wheezing on exam, continue albuterol/ipratropium
- No reported history of asthma exacerbation within the last year
- May consider addition of inhaled corticosteroid versus LABA/ICS as needed therapy. This can be pursued as an outpatient, patient follows up with Dr. Mcclendon at [facility]
#4. h/o Smoking with ?COPD
- More than [id number] smoking history
- Patient quit in 2023
- Pulmonary function testing not suggestive of underlying obstructive airway disease
- Pulmonary function testing, 10/2024. FEV 104%, FVC 96%, FEV1/FVC 79. DLCO mildly reduced at 64%. Total lung capacity 75%. Mild restriction and mildly reduced diffusion capacity without evidence of obstruction.
#4. RML squamous cell carcinoma (Diagnosed 10/2024)
- S/p radiation therapy
- Follow-up CT chest in 01/2025 shows stable to slightly decreased size of right middle lobe nodule
- Outpatient follow-up with medical oncology, radiation oncology and pulmonary service
Other medical diagnosis:
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
- Hypertension, hyperlipidemia
- Hypothyroidism
- Colonic mass, S/p robotic right hemicolectomy on 02/23/2025. Colorectal surgery and case
- History of thyroid cancer
Data:
CT Chest 01/2025: 1. There is stable to slightly decreased size of the nodule within the right middle lobe consistent with known malignancy. There is no evidence of new metastatic disease within the chest.
2. Stable mild bronchiectasis and bronchial wall thickening within the bilateral lower lobes and to a lesser extent the right middle lobe which may be sequelae of chronic endobronchial infection.
Robotic Bronchoscopy 10/2024: Right middle lobe biopsy positive for squamous cell carcinoma.
Lexiscan 06/2024: Negative for ischemia.
ECHO 06/2024: Normal biventricular size and systolic function without regional wall motion
abnormality.
No significant valvular disease.
Interatrial septal aneurysm is present. In limited views, unable to rule out
shunting via color flow Doppler.
Subjective Data
-
Date of Service:
Date of Service: February 26, 2025
Chief Complaint: Pulmonary Follow Up and Dyspnea Follow Up
Subjective:
denies any worsening shortness of breath, has some sputum production, no chest pain, or increased swelling
Review of Systems
General: Other ( per HPI)
Objective Data
Data Reviewed
Vital Signs / I&O:
Vital Signs
Temp Pulse Resp BP Pulse Ox
98.2 F 87 16 124/81 96
02/26/25 08:47 02/26/25 08:47 02/26/25 08:16 02/26/25 08:47 02/26/25 08:16
Intake and Output
02/25/25 02/26/25 02/27/25
06:59 06:59 06:59
Intake Total 660 / 660 1100 / 1100
Output Total 850 / 850 500 / 500
Balance -190 / -190 600 / 600
SaO2: 96
Nasal Cannula flow liters per minute: 2
Physical Exam
General: Respiratory Distress (n) and Comfortable
HEENT: Normocephalic, Anicteric and Moist Mucous Membranes
Cardiovascular: Regular Rhythm
Respiratory: Crackles ( basilar), Rhonchi ( few expiratory), Non-Labored Respirations, Accessory Resp Muscle Use (n) and Stridor (n)
GI: Soft, Non Distended and Non Tender
Neurology: Awake, Alert and No Motor Deficits
Skin: Warm, Good Color, Cyanosis (n) and Jaundice (n)
Labs/Micro/Reports
Lab Data
02/26/25 06:06
--- NOTE | 2025-02-26 12:53 | W.PN.CRS1 ---
Today's Communication / Plan
-
As below
Assessment/Plan
-
84-year-old female with PMH of asthma, COPD, bronchiectasis, CVA (17 years ago, no residual deficits), gout, HLD, HTN, hypothyroidism, GERD, recent lung cancer s/p RT, remote thyroid cancer s/p thyroidectomy, right breast DCIS (pending treatment
with Dr. Garrido), who presents for elective surgery due to right colon mass (01/15, colonoscopy showing proximal ascending colon mass with path showing adenomatous changes and ulceration, endoscopically not resectable)
POD 3 robotic right hemicolectomy, intraoperative colonoscopy, SBR
- brief findings: No residual mass was found in the right colon; remainder of colon scoped without any mass; identified small bowel lesion performed SBR
AFVSS
WBC 4.4, Hb 7.9 from 9.5, CR 0.5
�Due to episodes of bleeding, will make n.p.o. for bowel rest, ok for PO meds, restart IVF
�If continues bleeding, may require colonoscopy versus CTA
� Pain control with Tylenol, oxycodone and Dilaudid as needed; continue Entereg
�Hold DVT PPx
�Will give dose of TXA and 1 pack of platelets (takes aspirin at home)
� Ambulate 3 times daily, encourage OOB and I-S; appreciate PT
� Appreciate hospitalist consult
Subjective Data
Procedure
02/23/2025- Robotic right hemicolectomy, extensive lysis of adhesions greater than 1.5 hours, mesenteric angiography with ICG, colonoscopy, small bowel resection
Subjective Data
Date of Service: February 26, 2025
Last night, patient had bloody BM. Hb drifted downward. Had another bloody BM this a.m. Denies any chest pain, SOB or lightheadedness.
Pain controlled.
Denies nausea/vomiting. Tolerating diet.
+voiding
Pt is OOB.
Objective Data
-
Vital Signs
Temp Pulse Resp BP Pulse Ox
98.2 F 87 16 124/81 96
02/26/25 08:47 02/26/25 08:47 02/26/25 08:16 02/26/25 08:47 02/26/25 11:18
Intake & Output
02/25/25 02/26/25 02/27/25
06:59 06:59 06:59
Intake Total 660 / 660 1100 / 1100
Output Total 850 / 850 500 / 500
Balance -190 / -190 600 / 600
Intake:
Oral fluids 660 / 660 1100 / 1100
Output:
Liquid stool amount 500 / 500
Rectum 500 / 500
Urine, Acuña 300 / 300
Urine, Voided 550 / 550
Other:
Number of approximated MODERATE 3 2
amounts of urine
Number of approximated LARGE 2
amounts of urine
Lab Results
02/26/25 06:06
Physical Exam
-
General: No Acute Distress and AOx3
HEENT: Grossly Normal
Abdomen: Soft, Distended (Mildly distended, improved from yesterday), Tender (Appropriately tender near incisions), No Guarding and No Rebound
Skin: Warm and Dry
Wound: No Signs of Infection, Dressing in Place (Dermabond) and No Skin Erythema
[2025-02-26] MEDS: D5/0.45%NSS with KCL 20 MEQ 1000 IV ×2 (13:06→23:49)
[2025-02-26 14:34] LABS: Hematocrit 21.8 % (37.0-47.0); Hemoglobin 7.3 g/dL (12.0-16.0); Mean Corp Hgb Conc. 33.5 g/dL (33.0-37.0); Mean Corpuscular Volume 98.6 fL (81.0-99.0); Nucleated Red Blood Cells % 0 %; Platelet Count 136 10^3/uL (130-400); Red Cell Dist. Width 14.6 % (11.5-14.5)
[2025-02-26] MEDS: XANAX 0.25 MG PO ×2 (14:38→21:33)
[2025-02-26] MEDS: SINGULAIR 10 MG PO (17:12)
[2025-02-26] MEDS: ZOLOFT 100 MG PO (17:12)
[2025-02-26] MEDS: ZETIA 10 MG PO (21:32)
[2025-02-26] MEDS: CRESTOR 40 MG PO (21:32)
[2025-02-27 06:24] LABS: Hematocrit 22.9 % (37.0-47.0); Hemoglobin 7.6 g/dL (12.0-16.0); Mean Corp Hgb Conc. 33.2 g/dL (33.0-37.0); Mean Corpuscular Volume 100.4 fL (81.0-99.0); Nucleated Red Blood Cells % 0 %; Platelet Count 179 10^3/uL (130-400); Red Cell Dist. Width 14.7 % (11.5-14.5)
[2025-02-27] MEDS: SYNTHROID 100 MCG PO (06:25)
[2025-02-27] MEDS: TYLENOL 1000 MG PO ×3 (06:25→18:02)
[2025-02-27 06:43] VITALS: BMI 23.5
[2025-02-27 06:44] LABS: Blood Urea Nitrogen 3 mg/dl (7-17); Calcium 7.8 mg/dl (8.4-10.2); Carbon Dioxide 23 mmol/L (22-30); Chloride 112 mmol/L (98-107); Estimated Creatinine Clearance 61 ml/min; Glucose 122 mg/dl (70-99); Magnesium 2.1 mg/dl (1.6-2.3); Potassium 3.9 mmol/L (3.5-5.1); Sodium 140 mmol/L (135-145); eGFR > 60.00
--- NOTE | 2025-02-27 06:54 | PTCARENOTE ---
Pt reports chest pain, EKG done, report indicates normal EKG, VS 138/81 HR83 95%RA. Pt did have extended period of coughing 2 hours prior and now reports her coughing may be giving her discomfort. Pt resting comfortably in bed.
[2025-02-27 07:05] VITALS: BP 128/76
[2025-02-27] MEDS: SODIUM CHLORIDE 3% FOR INHALATION 1 VIAL INH ×2 (07:43→20:11)
[2025-02-27] MEDS: DUONEB 3 ML INH ×2 (07:43→20:11)
[2025-02-27] MEDS: ENTEREG 12 MG PO ×2 (07:50→20:47)
[2025-02-27] MEDS: MUCINEX 600 MG PO ×2 (07:51→20:47)
[2025-02-27] MEDS: LOPRESSOR 100 MG PO ×2 (07:51→20:47)
[2025-02-27] MEDS: NEURONTIN 400 MG PO ×3 (07:51→22:48)
[2025-02-27] MEDS: PROTONIX 40 MG PO (07:51)
--- NOTE | 2025-02-27 08:14 | W.PN.HOSP.TC ---
Today's Communication/Plan
-
Blood pressure stable
Diet advanced
Continue pulmonary toilet
Assessment / Plan
Assessment / Plan
Physical Exam
General: Well Developed and No Apparent Distress
HEENT: Normocephalic, Atraumatic and Moist Mucous Membranes
Respiratory: Clear to Auscultation Bilaterally
Cardiac: Regular Rhythm and S1/S2
GI: Soft, Nontender, Nondistended and Normal Bowel Sounds
Musculoskeletal: No Cyanosis and No Edema
Skin: Warm. Dry.
Neuro: Nonfocal/Grossly Intact
Impression.
Status post robotic right hemicolectomy on 02/23
Acute blood loss anemia
Other conditions:
Essential hypertension
COPD/bronchiectasis
Dyslipidemia
Hypothyroidism
Right breast carcinoma.
Squamous cell carcinoma right middle lobe
Thyroid carcinoma.
Plan:
Postoperative care as per surgical team.
Acuña removed.
Diet downgraded to NPO (except medications) given episodes of bleeding � upgraded back to Clears on 02/27/25
Monitor hemoglobin
Adjust analgesic regimen with attempt to wean off IV morphine
Continue IV Toradol and oxycodone
Acute blood loss anemia, postoperative. Hemoglobin trending down from 11.4-9-7.3-7.6
Noted with recurrent episodes of hematochezia. So far self-limited. Hold heparin/chemical DVT prophylaxis. Follow hemoglobin.
Dose of TXA and 1 pack of platelets (takes aspirin at home) as per surgery given on 02/26/25
Essential hypertension
Preadmission regimen including amlodipine losartan metoprolol
Continue metoprolol holding Amlodipine and Losartan monitor blood pressure
COPD/bronchiectasis
Fairly recently diagnosis of squamous cell carcinoma at the right middle lobe.
Stable respiratory status
Pulmonary following
Incentive spirometry
Increase activity
Nebs/hypertonic sodium chloride nebulizations
Anxiety
Multiple benzodiazepines listed including Xanax, Klonopin, temazepam.
Resume Xanax as needed for anxiety. Hold rest. Will need reassessment of preadmission prescriptions
Continue sertraline
Chronic pain neuropathy. Resume gabapentin
Hypothyroidism. On Levothyroxine.
Anticipated Discharge: > 48 hours
Subjective/Interval History
-
Date of Service: February 27, 2025
Patient was seen and examined. She denied any fever, chest pain or shortness of breath, or dysuria.
Objective Data
-
Labs:
Laboratory Results
02/27/25 02/27/25
00:45 05:36
WBC Cancelled 3.8 L
Hgb Cancelled 7.6 L
Hct Cancelled 22.9 L
Plt Count Cancelled 179 D
Sodium 140
Potassium 3.9
Chloride 112 H
Carbon Dioxide 23
BUN 3 L
Creatinine 0.5 L
Glucose 122 H
Calcium 7.8 L
Vital Signs:
Vital Signs
Temp Pulse Resp BP Pulse Ox
98.5 F 80 14 128/76 97
02/27/25 07:05 02/27/25 07:51 02/27/25 07:45 02/27/25 07:51 02/27/25 07:45
I&O
02/26/25 02/27/25 02/28/25
06:59 06:59 06:59
Intake Total 1100 / 1100 3084 / 3084
Output Total 500 / 500
Balance 600 / 600 3084 / 3084
[2025-02-27] MEDS: D5/0.45%NSS with KCL 20 MEQ 1000 IV ×2 (10:11→20:47)
--- NOTE | 2025-02-27 10:55 | W.PN.PUL.V3 ---
Today's Communication / Plan
-
Increase activity
Nebulizers-DuoNebs and 3% saline
Mucus clearing devices
Outpatient pulmonary follow-up
Assessment
-
#1. History of bronchiectasis
- Patient has known history of bibasilar lower lobe mild bronchiectasis.
- Current presentation is more suggestive of postop atelectasis and thickened mucus rather than acute exacerbation of bronchiectasis
- Acapella valve to help with airway clearance
- Hypertonic saline continues, 3%, nebulized twice a day, continue albuterol and ipratropium as ordered
- Chest x-ray reviewed, suggestive of mild left lower lobe atelectasis
- Patient does not have any increasing expectoration or change in color of phlegm, has normal WBC count, afebrile, hold off any antibiotics or steroids for bronchiectasis
- Resume outpatient follow-up with Dr. Mcclendon
#2. Left lower lobe atelectasis (s/p recent hemicolectomy)
- Sit in chair as tolerated, increase activity
- Start incentive spirometry, flutter valve added for airway clearance
#3. History of Asthma and Allergic rhinitis
- Suspect high Th2, eosinophil count ranging between 200-600
- Continue Singulair 10 mg daily
- No wheezing on exam, continue albuterol/ipratropium
- No reported history of asthma exacerbation within the last year
- May consider addition of inhaled corticosteroid versus LABA/ICS as needed therapy. This can be pursued as an outpatient, patient follows up with Dr. Mcclendon at [facility]
#4. h/o Smoking with ?COPD
- More than [id number]-unqo smoking history
- Patient quit in 2023
- Pulmonary function testing not suggestive of underlying obstructive airway disease
- Pulmonary function testing, 10/2024. FEV 104%, FVC 96%, FEV1/FVC 79. DLCO mildly reduced at 64%. Total lung capacity 75%. Mild restriction and mildly reduced diffusion capacity without evidence of obstruction.
#4. RML squamous cell carcinoma (Diagnosed 10/2024)
- S/p radiation therapy
- Follow-up CT chest in 01/2025 shows stable to slightly decreased size of right middle lobe nodule
- Outpatient follow-up with medical oncology, radiation oncology and pulmonary service
Other medical diagnosis:
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
- Hypertension, hyperlipidemia
- Hypothyroidism
- Colonic mass, S/p robotic right hemicolectomy on 02/23/2025. Colorectal surgery and case
- History of thyroid cancer
Data:
CT Chest 01/2025: 1. There is stable to slightly decreased size of the nodule within the right middle lobe consistent with known malignancy. There is no evidence of new metastatic disease within the chest.
2. Stable mild bronchiectasis and bronchial wall thickening within the bilateral lower lobes and to a lesser extent the right middle lobe which may be sequelae of chronic endobronchial infection.
Robotic Bronchoscopy 10/2024: Right middle lobe biopsy positive for squamous cell carcinoma.
Lexiscan 06/2024: Negative for ischemia.
ECHO 06/2024: Normal biventricular size and systolic function without regional wall motion
abnormality.
No significant valvular disease.
Interatrial septal aneurysm is present. In limited views, unable to rule out
shunting via color flow Doppler.
Subjective Data
-
Date of Service:
Date of Service: February 27, 2025
Chief Complaint: Pulmonary Follow Up and Dyspnea Follow Up
Subjective:
no complaints of shortness of breath, less mucus, less cough, no increased abdominal pain
Review of Systems
General: Other ( Per HPI)
Objective Data
Data Reviewed
Vital Signs / I&O:
Vital Signs
Temp Pulse Resp BP Pulse Ox
98.5 F 80 14 128/76 97
02/27/25 07:05 02/27/25 07:51 02/27/25 07:45 02/27/25 07:51 02/27/25 07:45
Intake and Output
02/26/25 02/27/25 02/28/25
06:59 06:59 06:59
Intake Total 1100 / 1100 [id number]
Output Total 500 / 500
Balance 600 / 600 3083
SaO2: 97
Nasal Cannula flow liters per minute: 2
Physical Exam
General: Respiratory Distress (n) and Comfortable
HEENT: Normocephalic, Anicteric and Moist Mucous Membranes
Cardiovascular: Regular Rhythm
Respiratory: Crackles ( basilar), Rhonchi ( few expiratory), Non-Labored Respirations, Accessory Resp Muscle Use (n) and Stridor (n)
GI: Soft, Non Distended and Non Tender
Neurology: Awake, Alert and No Motor Deficits
Skin: Warm, Good Color, Cyanosis (n) and Jaundice (n)
Labs/Micro/Reports
Lab Data
02/27/25 05:36
--- NOTE | 2025-02-27 12:46 | W.PN.GS2 ---
Addendum entered and electronically signed by Keaton Canchola MD 02/27/25 13:02:
Patient seen and examined. Agree with assessment plan as documented below.
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
adenomatous changes and ulceration, endoscopically not resectable)
POD 4 robotic right hemicolectomy, intraoperative colonoscopy, SBR
AFVSS
Labs stable
Thrombocytopenia with acute anemia secondary to blood loss and hemodilution, h/h stable this am
s/p TXA and plt transfusion on 02/26/25
Plan:
� CLD today
- Hold off on colonoscopy for now given stable h/h, no further bleeding
- C/W IVF
� CBC later today
� Pain control with Tylenol, oxycodone and Dilaudid as needed; continue Entereg
� Hold DVT PPx given prior bleeding
- OOB/ambulate
� Appreciate Hospitalist consult
Original Note:
Today's Communication / Plan
-
Clears
Follow labs
Assessment / Plan
-
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
adenomatous changes and ulceration, endoscopically not resectable)
POD 4 robotic right hemicolectomy, intraoperative colonoscopy, SBR
- brief findings: No residual mass was found in the right colon; remainder of colon scoped without any mass; identified small bowel lesion performed SBR
AFVSS
Labs stable
Thrombocytopenia with acute anemia secondary to blood loss and hemodilution, h/h stable this am
s/p TXA and plt transfusion on 02/26/25
Plan:
� CLD today
- Hold off on colonoscopy for now given stable h/h, no further bleeding
- C/W IVF
� CBC later today
� Pain control with Tylenol, oxycodone and Dilaudid as needed; continue Entereg
� Hold DVT PPx given prior bleeding
- OOB/ambulate
� Appreciate hospitalist consult
Subjective Data
-
Date of Service: February 27, 2025
Pt seen and examined at bedside with Dr. Canchola. Denies n/v. Passing BM's but notes no blood in her stool since 10pm last night. Passing flatus. OOB to chair.
Objective Data
-
Intake and Output
02/26/25 02/27/25 02/28/25
06:59 06:59 06:59
Intake Total 1100 / 1100 3084 / 3084
Output Total 500 / 500
Balance 600 / 600 3084 / 3084
Intake:
Oral fluids 1100 / 1100 580 / 580
IV fluids (Total) 1200 / 1200
IV piggybacks 350 / 350
Blood products 477 / 477
Blood Product Amount Infused ( 477 / 477
mL)
Pas Plt Pheresis Leukoreduced 477 / 477
Unit [id number]
Output:
Liquid stool amount 500 / 500
Rectum 500 / 500
Other:
Number of approximated MODERATE 2 4
amounts of urine
Number of approximated LARGE 2
amounts of urine
Vital Signs
Temp Pulse Resp BP Pulse Ox
98.5 F 80 14 128/76 97
02/27/25 07:05 02/27/25 07:51 02/27/25 07:45 02/27/25 07:51 02/27/25 10:57
Lab Results
02/27/25 05:36
Calcium 7.8 mg/dl (8.4-10.2) L 02/27/25 05:36
Magnesium 2.1 mg/dl (1.6-2.3) 02/27/25 05:36
Total Bilirubin 0.5 mg/dl (0.2-1.3) 02/23/25 23:55
AST 39 U/L (14-36) H 02/23/25 23:55
ALT 34 U/L (0-35) 02/23/25 23:55
Alkaline Phosphatase 70 U/L (38-126) 02/23/25 23:55
Total Protein 6.4 g/dl (6.3-8.2) 02/23/25 23:55
Albumin 4.2 g/dl (3.5-5.0) 02/23/25 23:55
Physical Exam
-
NAD
ABD soft, nd, minimal incisional tenderness
Incisions healing well with intact glue
[2025-02-27 13:35] LABS: Hematocrit 26.5 % (37.0-47.0); Hemoglobin 8.6 g/dL (12.0-16.0); Mean Corp Hgb Conc. 32.5 g/dL (33.0-37.0); Mean Corpuscular Volume 101.5 fL (81.0-99.0); Platelet Count 201 10^3/uL (130-400); Red Cell Dist. Width 14.6 % (11.5-14.5)
[2025-02-27 15:05] VITALS: BP 127/78
[2025-02-27] MEDS: ZOLOFT 100 MG PO (18:02)
[2025-02-27] MEDS: SINGULAIR 10 MG PO (18:02)
[2025-02-27] MEDS: ZETIA 10 MG PO (22:48)
[2025-02-27] MEDS: CRESTOR 40 MG PO (22:48)
[2025-02-27] MEDS: XANAX 0.25 MG PO (22:51)
[2025-02-27 23:40] VITALS: BP 139/81
[2025-02-28 05:53] LABS: Hematocrit 23.5 % (37.0-47.0); Hemoglobin 7.6 g/dL (12.0-16.0); Mean Corp Hgb Conc. 32.3 g/dL (33.0-37.0); Mean Corpuscular Volume 99.6 fL (81.0-99.0); Platelet Count 186 10^3/uL (130-400); Red Cell Dist. Width 14.7 % (11.5-14.5)
[2025-02-28] MEDS: TYLENOL 1000 MG PO ×4 (06:06→17:33)
[2025-02-28] MEDS: SYNTHROID 100 MCG PO (06:06)
[2025-02-28 06:10] VITALS: BMI 23.6
[2025-02-28 06:27] LABS: Blood Urea Nitrogen 4 mg/dl (7-17); Calcium 8.0 mg/dl (8.4-10.2); Carbon Dioxide 22 mmol/L (22-30); Chloride 113 mmol/L (98-107); Estimated Creatinine Clearance 61 ml/min; Glucose 109 mg/dl (70-99); Potassium 4.2 mmol/L (3.5-5.1); Sodium 140 mmol/L (135-145); eGFR > 60.00
[2025-02-28 07:05] VITALS: BP 128/73
[2025-02-28] MEDS: SODIUM CHLORIDE 3% FOR INHALATION 1 VIAL INH ×2 (07:22→20:00)
[2025-02-28] MEDS: DUONEB 3 ML INH ×2 (07:22→20:00)
[2025-02-28] MEDS: NEURONTIN 400 MG PO ×3 (08:02→21:40)
[2025-02-28] MEDS: ENTEREG 12 MG PO ×2 (08:02→21:40)
[2025-02-28] MEDS: LOPRESSOR 100 MG PO ×2 (08:03→21:40)
[2025-02-28] MEDS: MUCINEX 600 MG PO ×2 (08:03→21:40)
[2025-02-28] MEDS: PROTONIX 40 MG PO (08:03)
[2025-02-28] MEDS: D5/0.45%NSS with KCL 20 MEQ IV (08:13)
--- NOTE | 2025-02-28 09:42 | W.PN.GS2 ---
Addendum entered and electronically signed by Keaton Canchola MD 02/28/25 09:56:
Patient seen and examined. Agree with assessment plan as documented below.
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
adenomatous changes and ulceration, endoscopically not resectable)
POD 5 robotic right hemicolectomy, intraoperative colonoscopy, SBR
AFVSS
Labs stable
s/p TXA and plt transfusion on 02/26/25, no further bleeding
Passing a little gas but no BM's x2 days
Plan:
� FLD today
- D/C IVF
� Sq Lovenox and SCDs for VTE ppx
� Pain control with Tylenol, oxycodone and Dilaudid as needed; continue Entereg
- OOB/ambulate
- OR path pending
� Appreciate hospitalist
Original Note:
Today's Communication / Plan
-
Full liquids
Assessment / Plan
-
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
adenomatous changes and ulceration, endoscopically not resectable)
POD 5 robotic right hemicolectomy, intraoperative colonoscopy, SBR
- brief findings: No residual mass was found in the right colon; remainder of colon scoped without any mass; identified small bowel lesion performed SBR
AFVSS
Labs stable
s/p TXA and plt transfusion on 02/26/25, no further bleeding
Passing a little gas but no BM's x2 days
Plan:
� FLD today
- D/C IVF
� Sq Lovenox and SCDs for VTE ppx
� Pain control with Tylenol, oxycodone and Dilaudid as needed; continue Entereg
- OOB/ambulate
- OR path pending
� Appreciate hospitalist
Subjective Data
-
Date of Service: February 28, 2025
Pt seen and examined at bedside with Dr. Canchola. Denies n/v. Toel[place]ing diet. Not passing much gas. No BM since Saturday night. OOB ambulating, took a shower today. Denies pain.
Objective Data
-
Intake and Output
02/27/25 02/28/25 03/01/25
06:59 06:59 06:59
Intake Total 3084 / 3084 1779
Balance 3084 / 3084 1779
Intake:
Oral fluids 580 / 580 1779
IV fluids (Total) 1200 / 1200
IV piggybacks 350 / 350
Blood products 477 / 477
Blood Product Amount Infused ( / 477
mL)
Pas Plt Pheresis Leukoreduced
Unit [id number]
Other:
Number of approximated MODERATE 4 4
amounts of urine
Vital Signs
Temp Pulse Resp BP Pulse Ox
97.6 F 74 18 128/73 97
02/28/25 07:05 02/28/25 07:25 02/28/25 07:25 02/28/25 07:05 02/28/25 07:25
Lab Results
02/28/25 05:16
02/28/25 05:16
Calcium 8.0 mg/dl (8.4-10.2) L 02/28/25 05:16
Magnesium 2.1 mg/dl (1.6-2.3) 02/27/25 05:36
Total Bilirubin 0.5 mg/dl (0.2-1.3) 02/23/25 23:55
AST 39 U/L (14-36) H 02/23/25 23:55
ALT 34 U/L (0-35) 02/23/25 23:55
Alkaline Phosphatase 70 U/L (38-126) 02/23/25 23:55
Total Protein 6.4 g/dl (6.3-8.2) 02/23/25 23:
Albumin 4.2 g/dl (3.5-5.0) 02/23/25 23:55
Physical Exam
-
NAD
ABD soft, mild distention, minimal incisional tenderness
Incisions healing well with intact glue, some ecchymosis to lower incisions
Patient has a ramírez catheter: No
Patient has a central line: No
--- NOTE | 2025-02-28 10:47 | W.PN.PUL.V3 ---
Today's Communication / Plan
-
Wean oxygen
Advance diet
Increase activity
Mucus clearing devices
Outpatient pulmonary follow-up with Dr. Cruz
Assessment
-
#1. History of bronchiectasis
- Patient has known history of bibasilar lower lobe mild bronchiectasis-overall currently stable with minimal mucus production
- Current presentation is more suggestive of postop atelectasis and thickened mucus rather than acute exacerbation of bronchiectasis
- Acapella valve to help with airway clearance
- Hypertonic saline continues, 3%, nebulized twice a day, continue albuterol and ipratropium as ordered
- Chest x-ray reviewed, suggestive of mild left lower lobe atelectasis
- Patient does not have any increasing expectoration or change in color of phlegm, has normal WBC count, afebrile, hold off any antibiotics or steroids for bronchiectasis
- Resume outpatient follow-up with Dr. Mcclendon
#2. Left lower lobe atelectasis (s/p recent hemicolectomy)
- Sit in chair as tolerated, increase activity
- Start incentive spirometry, flutter valve added for airway clearance
#3. History of Asthma and Allergic rhinitis
- Suspect high Th2, eosinophil count ranging between 200-600
- Continue Singulair 10 mg daily
- No wheezing on exam, continue albuterol/ipratropium
- No reported history of asthma exacerbation within the last year
- May consider addition of inhaled corticosteroid versus LABA/ICS as needed therapy. This can be pursued as an outpatient, patient follows up with Dr. Mcclendon at [facility]
#4. h/o Smoking with ?COPD
- More than [id number] smoking history
- Patient quit in 2023
- Pulmonary function testing not suggestive of underlying obstructive airway disease
- Pulmonary function testing, 10/2024. FEV 104%, FVC 96%, FEV1/FVC 79. DLCO mildly reduced at 64%. Total lung capacity 75%. Mild restriction and mildly reduced diffusion capacity without evidence of obstruction.
#4. RML squamous cell carcinoma (Diagnosed 10/2024)
- S/p radiation therapy
- Follow-up CT chest in 01/2025 shows stable to slightly decreased size of right middle lobe nodule
- Outpatient follow-up with medical oncology, radiation oncology and pulmonary service
Other medical diagnosis:
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
- Hypertension, hyperlipidemia
- Hypothyroidism
- Colonic mass, S/p robotic right hemicolectomy on 02/23/2025. Colorectal surgery and case
- History of thyroid cancer
Data:
CT Chest 01/2025: 1. There is stable to slightly decreased size of the nodule within the right middle lobe consistent with known malignancy. There is no evidence of new metastatic disease within the chest.
2. Stable mild bronchiectasis and bronchial wall thickening within the bilateral lower lobes and to a lesser extent the right middle lobe which may be sequelae of chronic endobronchial infection.
Robotic Bronchoscopy 10/2024: Right middle lobe biopsy positive for squamous cell carcinoma.
Lexiscan 06/2024: Negative for ischemia.
ECHO 06/2024: Normal biventricular size and systolic function without regional wall motion
abnormality.
No significant valvular disease.
Interatrial septal aneurysm is present. In limited views, unable to rule out
shunting via color flow Doppler.
Subjective Data
-
Date of Service:
Date of Service: February 28, 2025
Chief Complaint: Pulmonary Follow Up and Dyspnea Follow Up
Subjective:
feels better, no abdominal complaints, respiratory status stable, no shortness of breath, chest pain or abdominal pain
Review of Systems
General: Other ( Per HPI)
Objective Data
Data Reviewed
Vital Signs / I&O:
Vital Signs
Temp Pulse Resp BP Pulse Ox
97.6 F 74 18 128/73 97
02/28/25 07:05 02/28/25 07:25 02/28/25 07:25 02/28/25 07:05 02/28/25 07:25
Intake and Output
02/27/25 02/28/25 03/01/25
06:59 06:59 06:59
Intake Total 3083 / 4 1779
Balance 4 / 4 1779
SaO2: 97
Nasal Cannula flow liters per minute: 2
Physical Exam
General: Respiratory Distress (n) and Comfortable
HEENT: Normocephalic, Anicteric and Moist Mucous Membranes
Cardiovascular: Regular Rhythm
Respiratory: Crackles ( basilar), Rhonchi ( few expiratory), Non-Labored Respirations, Accessory Resp Muscle Use (n) and Stridor (n)
GI: Soft, Non Distended and Non Tender
Neurology: Awake, Alert and No Motor Deficits
Skin: Warm, Good Color, Cyanosis (n) and Jaundice (n)
Labs/Micro/Reports
Lab Data
02/28/25 05:16
02/28/25 05:16
--- NOTE | 2025-02-28 11:49 | PTCARENOTE ---
Patient had a bowel movement today which was dark with blood evident.She does not report any symptoms with it.
[2025-02-28 11:58] VITALS: BP 122/86; PULSE 82; O2SAT 98
[2025-02-28 15:15] VITALS: BP 117/77
[2025-02-28] MEDS: ROXICODONE 5 MG PO (15:49)
--- NOTE | 2025-02-28 16:10 | CHAP ---
Ms Jurado shared some of her story; she keeps a positive spirit. Emotional and spiritual support provided. She said she would welcome further [facility] tender visits.
--- NOTE | 2025-02-28 17:04 | W.PN.HOSP.TC ---
Addendum entered and electronically signed by Baljeet Mooney MD 02/28/25 17:21:
Discussed with Dr. Canchola, no IV iron at this time, will cancel iron studies at this time. Will still check Vitamin B12 level.
Original Note:
Today's Communication/Plan
-
Patient doing well tolerating diet but no BM for almost 2 days
Advance to Full Liquids
Check iron studies and B12 level
Blood pressure and HR okay -- continue current antihypertensive regimen
Assessment / Plan
Assessment / Plan
Physical Exam
General: Well Developed and No Apparent Distress
HEENT: Normocephalic, Atraumatic and Moist Mucous Membranes
Respiratory: Clear to Auscultation Bilaterally
Cardiac: Regular Rhythm and S1/S2
GI: Soft, Nontender, Nondistended and Normal Bowel Sounds
Musculoskeletal: No Cyanosis and No Edema
Skin: Warm. Dry.
Neuro: Nonfocal/Grossly Intact
Impression.
Status post robotic right hemicolectomy on 02/23
Acute blood loss anemia
Other conditions:
Essential hypertension
COPD/bronchiectasis
Dyslipidemia
Hypothyroidism
Right breast carcinoma.
Squamous cell carcinoma right middle lobe
Thyroid carcinoma.
Plan:
Postoperative care as per surgical team.
Acuña removed.
Diet recently downgraded to NPO (except medications) given episodes of bleeding � upgraded back to Clears on 02/27/25 -- today upgraded to Full Liquids
Monitor hemoglobin
Adjust analgesic regimen with attempt to wean off IV morphine
Continue IV Toradol and oxycodone
Acute blood loss anemia, postoperative. Hemoglobin trending down from 11.4-9-7.3-7.6
Noted with recurrent episodes of hematochezia. So far self-limited. Hold heparin/chemical DVT prophylaxis. Follow hemoglobin.
Dose of TXA and 1 pack of platelets (takes aspirin at home) as per surgery given on 02/26/25
Ordered iron studies and B12 level
Essential hypertension
Preadmission regimen including amlodipine losartan metoprolol
Continue metoprolol holding Amlodipine and Losartan monitor blood pressure -- SBP has been relatively well controlled in the past ~24 hours in the 110s to 130s range. HR okay.
COPD/bronchiectasis
Fairly recently diagnosis of squamous cell carcinoma at the right middle lobe.
Stable respiratory status
Pulmonary following
Incentive spirometry
Increase activity
Nebs/hypertonic sodium chloride nebulizations
Anxiety
Multiple benzodiazepines listed including Xanax, Klonopin, temazepam.
Resume Xanax as needed for anxiety. Hold rest. Will need reassessment of preadmission prescriptions
Continue sertraline
Chronic pain neuropathy. Resume gabapentin
Hypothyroidism. On Levothyroxine.
Anticipated Discharge: > 48 hours
Subjective/Interval History
-
Date of Service: February 28, 2025
Patient was seen and examined. She denied any symptoms or complaints.
Objective Data
-
Labs:
Laboratory Results
02/28/25
05:16
WBC 3.0 L
Hgb 7.6 L
Hct 23.5 L
Plt Count 186
Sodium 140
Potassium 4.2
Chloride 113 H
Carbon Dioxide 22
BUN 4 L
Creatinine 0.5 L
Glucose 109 H
Calcium 8.0 L
Vital Signs:
Vital Signs
Temp Pulse Resp BP Pulse Ox
98.2 F 78 16 117/77 97
02/28/25 15:15 02/28/25 15:15 02/28/25 15:15 02/28/25 15:15 02/28/25 15:15
I&O
02/27/25 02/28/25 03/01/25
06:59 06:59 06:59
Intake Total 3084 / 3084 1780 / 1780
Balance 308 / 3083
[2025-02-28] MEDS: LOVENOX 40 MG SC (17:33)
[2025-02-28] MEDS: SINGULAIR 10 MG PO (17:33)
[2025-02-28] MEDS: ZOLOFT 100 MG PO (17:33)
[2025-02-28 21:36] VITALS: BP 131/84
[2025-02-28] MEDS: ZETIA 10 MG PO (21:40)
[2025-02-28] MEDS: CRESTOR 40 MG PO (21:40)
[2025-02-28 23:10] VITALS: BP 124/70
[2025-02-28] MEDS: TYLENOL PO (23:26)
[2025-03-01] MEDS: SYNTHROID 100 MCG PO (02:52)
[2025-03-01] MEDS: TYLENOL 1000 MG PO ×3 (05:02→17:24)
[2025-03-01 06:00] VITALS: BMI 22.9
[2025-03-01 06:47] LABS: Hematocrit 24.0 % (37.0-47.0); Hemoglobin 8.0 g/dL (12.0-16.0); Mean Corp Hgb Conc. 33.3 g/dL (33.0-37.0); Mean Corpuscular Volume 98.4 fL (81.0-99.0); Platelet Count 214 10^3/uL (130-400); Red Cell Dist. Width 14.4 % (11.5-14.5)
[2025-03-01] MEDS: SODIUM CHLORIDE 3% FOR INHALATION 1 VIAL INH ×2 (07:00→19:57)
[2025-03-01] MEDS: DUONEB 3 ML INH ×2 (07:00→19:57)
[2025-03-01 07:17] LABS: Blood Urea Nitrogen 6 mg/dl (7-17); Calcium 8.4 mg/dl (8.4-10.2); Carbon Dioxide 24 mmol/L (22-30); Chloride 111 mmol/L (98-107); Estimated Creatinine Clearance 61 ml/min; Glucose 84 mg/dl (70-99); Potassium 4.3 mmol/L (3.5-5.1); Sodium 140 mmol/L (135-145); eGFR > 60.00
[2025-03-01 08:02] LABS: Vitamin B12 901 pg/ml (239-931)
[2025-03-01] MEDS: NEURONTIN 400 MG PO ×3 (09:15→21:12)
[2025-03-01] MEDS: LOPRESSOR 100 MG PO ×2 (09:16→21:11)
[2025-03-01] MEDS: PROTONIX 40 MG PO (09:16)
[2025-03-01] MEDS: ENTEREG 12 MG PO (09:16)
[2025-03-01] MEDS: MUCINEX 600 MG PO ×2 (09:16→21:12)
[2025-03-01 09:26] VITALS: BP 123/82
--- NOTE | 2025-03-01 09:47 | W.PN.PUL3 ---
Today's Communication / Plan
-
Up OOB as tolerated
Postoperative management as per colorectal surgery
Mucus clearing devices
Patient is being prepared for discharge home. She has follow-up arranged with our office with Dr. Cruz for 05/05/2025.
No additional recommendations at this time. Pulmonary service will now sign off. Please reconsult if there are any additional questions/concerns, or if patient's respiratory status deteriorates.
Assessment
-
#1. History of bronchiectasis
- Patient has known history of bibasilar lower lobe mild bronchiectasis-overall currently stable with minimal mucus production
- Believe she had postop atelectasis and thickened mucus rather than acute exacerbation of bronchiectasis
- Acapella valve to help with airway clearance
- Hypertonic saline continues, 3%, nebulized twice a day, continue albuterol and ipratropium as ordered
- Chest x-ray reviewed, suggestive of mild left lower lobe atelectasis
- Patient does not have any increasing expectoration or change in color of phlegm, is non-toxic appearing and has been afebrile - -> hold off any antibiotics or steroids for bronchiectasis
- Resume outpatient follow-up with Dr. Curz
#2. Left lower lobe atelectasis (s/p recent hemicolectomy)
- Encourage incentive spirometer use
- Flutter valve added for airway clearance
#3. History of Asthma and Allergic rhinitis
- Suspect high Th2, eosinophil count ranging between 200-600
- Continue Singulair 10 mg daily
- No wheezing on exam, continue albuterol/ipratropium BID
- No reported history of asthma exacerbation within the last year
- May consider addition of inhaled corticosteroid versus LABA/ICS as needed therapy. This can be discussed as an outpatient
#4. h/o Smoking with ?COPD
- More than 09-[id number] smoking history
- Patient quit in 2023
- Pulmonary function testing not suggestive of underlying obstructive airway disease
- Pulmonary function testing, 10/2024. FEV 104%, FVC 96%, FEV1/FVC 79. DLCO mildly reduced at 64%. Total lung capacity 75%. Mild restriction and mildly reduced diffusion capacity without evidence of obstruction.
#4. RML squamous cell carcinoma (Diagnosed 10/2024)
- S/p radiation therapy
- Follow-up CT chest in 01/2025 shows stable to slightly decreased size of right middle lobe nodule
- Outpatient follow-up with medical oncology, radiation oncology and pulmonary service
Other medical diagnosis:
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
- Hypertension, hyperlipidemia
- Hypothyroidism
- Colonic mass, S/p robotic right hemicolectomy on 02/23/2025. Postoperative management as per colorectal surgery
- History of thyroid cancer
Patient is being prepared for discharge home. She has follow-up arranged with our office with Dr. Cruz for 05/05/2025.
No additional recommendations at this time. Pulmonary service will now sign off. Thank you for allowing us to be involved in the care of this patient. Please reconsult if there are any additional questions/concerns, or if patient's respiratory
status deteriorates.
Data:
CT Chest 01/2025: 1. There is stable to slightly decreased size of the nodule within the right middle lobe consistent with known malignancy. There is no evidence of new metastatic disease within the chest.
2. Stable mild bronchiectasis and bronchial wall thickening within the bilateral lower lobes and to a lesser extent the right middle lobe which may be sequelae of chronic endobronchial infection.
Robotic Bronchoscopy 10/2024: Right middle lobe biopsy positive for squamous cell carcinoma.
Lexiscan 06/2024: Negative for ischemia.
ECHO 06/2024: Normal biventricular size and systolic function without regional wall motion
abnormality.
No significant valvular disease.
Interatrial septal aneurysm is present. In limited views, unable to rule out
shunting via color flow Dopper.
Total time spent today was 41 minutes for this encounter. Time includes reviewing laboratory test/imaging results, reviewing pertinent medical records, obtaining and reviewing medical history, performing an appropriate exam, ordering medications,
tests and procedures. Time also includes documentation of this encounter, coordinating patient care and communicating with other healthcare professionals. Total time does not include separately billed tests performed on this date of service.
Subjective Data
-
Date of Service:
Date of Service: March 01, 2025
Chief Complaint: Pulmonary Follow Up and Dyspnea Follow Up
Subjective:
Patient seen and evaluated today bedside. Awaiting to go home. Patient's son, Stan, present at bedside. Patient is on room air right now breathing comfortably, denies shortness of breath or cough.
Review of Systems
General: Other (Negative unless mentioned above)
Objective Data
Data Reviewed
Vital Signs / I&O / Oxygen:
Vital Signs
Temp Pulse Resp BP Pulse Ox
98.5 F 98 16 123/82 96
03/01/25 09:26 03/01/25 09:26 03/01/25 09:26 03/01/25 09:26 03/01/25 10:11
Intake and Output
02/28/25 03/01/25 03/02/25
06:59 06:59 06:59
Intake Total 1779
Balance 1779 / 1779
SaO2 96
Nasal Cannula flow liters per 2
minute
Physical Exam
General: Respiratory Distress (n), Comfortable, Chills (n) and Sweats (n)
HEENT: Normocephalic, Anicteric and Moist Mucous Membranes
Cardiovascular: S1-S2 and Peripheral Edema (n)
Respiratory: Wheeze (n), Crackles (Bibasilar), Rhonchi (n), Non-Labored Respirations and Stridor (n)
GI: Soft, Non Distended, Non Tender and Normal Bowel Sounds
Neurology: Awake, Alert, Oriented and Tremors (n)
Skin: Warm, Dry, Cyanosis (n) and Jaundice (n)
Labs/Micro/Reports
Lab Data
03/01/25 05:53
03/01/25 05:53
--- NOTE | 2025-03-01 10:25 | W.PN.CRS1 ---
Today's Communication / Plan
-
regular diet
Assessment/Plan
-
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
adenomatous changes and ulceration, endoscopically not resectable)
POD 6 robotic right hemicolectomy, intraoperative colonoscopy, SBR
Vitlas normal
Hgb 8.0 (7.6, 8.6), WBC 2.6
s/p TXA and plt transfusion on 02/26/25, no further bleeding
Plan:
� Advance to a regular diet today
� Sq Lovenox and SCDs for VTE ppx
� Pain control with Tylenol, oxycodone and Dilaudid as needed; continue Entereg
- OOB/ambulate
- OR path pending
� Appreciate hospitalist
- Pain control: Toradol/Tylenol standing, Dilaudid PRN
- Possible d/c later today if having brown bowel movements and tolerating a diet
Subjective Data
Procedure
02/23/2025- Robotic right hemicolectomy, extensive lysis of adhesions greater than 1.5 hours, mesenteric angiography with ICG, colonoscopy, small bowel resection
Subjective Data
Date of Service: March 01, 2025
Patient states she had some rectal bleeding yesterday but not today yet. She is very hungry. Denies nausea or vomiting. Her pain is controlled.
Objective Data
-
Vital Signs
Temp Pulse Resp BP Pulse Ox
98.5 F 98 16 123/82 98
03/01/25 09:26 03/01/25 09:26 03/01/25 09:26 03/01/25 09:26 03/01/25 09:26
Intake & Output
02/28/25 03/01/25 03/02/25
06:59 06:59 06:59
Intake Total 1779
Balance 1779
Intake:
Oral fluids 1779
Other:
Number of approximated MODERATE 4 2
amounts of urine
Lab Results
03/01/25 05:53
03/01/25 05:53
Physical Exam
-
General: No Acute Distress and AOx3
Abdomen: Soft, Non Distended and Non Tender
Skin: Warm and Dry
Incision: Clear, Dry, Intact
[2025-03-01 13:28] LABS: Hematocrit 26.6 % (37.0-47.0); Hemoglobin 8.8 g/dL (12.0-16.0)
--- NOTE | 2025-03-01 13:39 | W.PN.HOSP.TC ---
Today's Communication/Plan
-
Regular diet.
Monitor for recurrent hematochezia.
If discharged home would continue with metoprolol. Terac and Cobrooklynnar had been on hold with reasonably well-controlled BP.
Assessment / Plan
Assessment / Plan
Impression.
Status post robotic right hemicolectomy on 02/23
Acute blood loss anemia
Other conditions:
Essential hypertension
COPD/bronchiectasis
Dyslipidemia
Hypothyroidism
Right breast carcinoma.
Squamous cell carcinoma right middle lobe
Thyroid carcinoma.
Plan:
Postoperative care as per surgical team.
Acuña removed.
Diet recently downgraded to NPO (except medications) given episodes of bleeding � upgraded back to Clears on 02/27/25 -- today upgraded to Full Liquids
Monitor hemoglobin
Adjust analgesic regimen with attempt to wean off IV morphine
Continue IV Toradol and oxycodone
Acute blood loss anemia, postoperative. Hemoglobin trending down from 11.4-9-7.3-7.6-8.8
Noted with recurrent episodes of hematochezia. So far self-limited. Hold heparin/chemical DVT prophylaxis. Follow hemoglobin.
Dose of TXA and 1 pack of platelets (takes aspirin at home) as per surgery given on 02/26/25
B12 within normal limits
Essential hypertension
Preadmission regimen including amlodipine losartan metoprolol
Continue metoprolol holding Amlodipine and Losartan monitor blood pressure -- SBP has been relatively well controlled in the past ~24 hours in the 110s to 130s range. HR okay.
COPD/bronchiectasis
Fairly recently diagnosis of squamous cell carcinoma at the right middle lobe.
Stable respiratory status
Pulmonary following
Incentive spirometry
Increase activity
Nebs/hypertonic sodium chloride nebulizations
Anxiety
Multiple benzodiazepines listed including Xanax, Klonopin, temazepam.
Resume Xanax as needed for anxiety. Hold rest. Will need reassessment of preadmission prescriptions
Continue sertraline
Chronic pain neuropathy. Resume gabapentin
Hypothyroidism. On Levothyroxine.
Anticipated Discharge: 24 - 48 hours
Subjective/Interval History
-
Date of Service: March 01, 2025
Objective Data
-
Labs:
Laboratory Results
03/01/25 03/01/25
05:53 13:16
WBC 2.6 L
Hgb 8.0 L 8.8 L
Hct 24.0 L 26.6 L
Plt Count 214
Sodium 140
Potassium 4.3
Chloride 111 H
Carbon Dioxide 24
BUN 6 L
Creatinine 0.5 L
Glucose 84
Calcium 8.4
Vital Signs:
Vital Signs
Temp Pulse Resp BP Pulse Ox
98.5 F 98 16 123/82 96
03/01/25 09:26 03/01/25 09:26 03/01/25 09:26 03/01/25 09:26 03/01/25 10:11
I&O
02/28/25 03/01/25 03/02/25
06:59 06:59 06:59
Intake Total 1779
Balance 1779
Physical Exam
-
General: Well Developed and No Apparent Distress
HEENT: Normocephalic, Atraumatic and Moist Mucous Membranes
Respiratory: Clear to Auscultation
Cardiac: Regular Rhythm and S1/S2; Negative Murmur, Rub or Gallop
GI: Soft, Nontender, Nondistended and Normal Bowel Sounds; Negative Organomegaly
Rectal: Deferred by Provider
Musculoskeletal: No Clubbing, No Cyanosis and No Edema
Skin: Negative Rash
Neuro: Nonfocal/Grossly Intact
[2025-03-01 15:50] VITALS: BP 134/85
[2025-03-01] MEDS: ZOLOFT 100 MG PO (17:24)
[2025-03-01] MEDS: SINGULAIR 10 MG PO (17:24)
--- NOTE | 2025-03-01 19:41 | PTCARENOTE ---
Family requesting to take pt home. Unsure where miscommunication occurred by did inform pt after TT with PA that she would be staying but apparently called family and asked them to pick her up. So they them requested nurse reach out to doctor, but
explained she would be staying one more night to recheck HG in [place]. Family understood. Tolerated Low residue diet and Only had 2 small BM's which were blood tinged today
[2025-03-01] MEDS: ZETIA 10 MG PO (21:11)
[2025-03-01] MEDS: CRESTOR 40 MG PO (21:12)
[2025-03-01 23:00] VITALS: BP 111/78
[2025-03-01] MEDS: TYLENOL PO (23:32)
[2025-03-02] MEDS: SYNTHROID 100 MCG PO (02:35)
[2025-03-02] MEDS: TYLENOL PO ×2 (05:16→12:45)
[2025-03-02 06:00] VITALS: BMI 22.8
[2025-03-02 07:23] LABS: Hematocrit 23.2 % (37.0-47.0); Hemoglobin 7.9 g/dL (12.0-16.0); Mean Corp Hgb Conc. 34.1 g/dL (33.0-37.0); Mean Corpuscular Volume 98.3 fL (81.0-99.0); Nucleated Red Blood Cells % 0 %; Platelet Count 214 10^3/uL (130-400); Red Cell Dist. Width 14.3 % (11.5-14.5)
[2025-03-02 07:27] VITALS: BP 116/79
[2025-03-02] MEDS: SODIUM CHLORIDE 3% FOR INHALATION 1 VIAL INH (07:58)
[2025-03-02] MEDS: DUONEB 3 ML INH (07:58)
[2025-03-02] MEDS: LOPRESSOR 100 MG PO (08:31)
[2025-03-02] MEDS: XANAX 0.25 MG PO (08:32)
[2025-03-02] MEDS: MUCINEX 600 MG PO (08:32)
[2025-03-02] MEDS: NEURONTIN 400 MG PO (08:32)
[2025-03-02] MEDS: PROTONIX 40 MG PO (08:32)
--- NOTE | 2025-03-02 10:41 | W.PN.CRS1 ---
Addendum entered and electronically signed by Hira Cha MD 03/09/25 11:46:
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
Original Note:
Today's Communication / Plan
-
recheck h/h later this AM
possible d/c today if hemoglobin stable and no further bloody bms
Assessment/Plan
-
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
adenomatous changes and ulceration, endoscopically not resectable)
POD 7 robotic right hemicolectomy, intraoperative colonoscopy, SBR
Vitals normal
Hgb 7.9 (8.8), WBC 2.7
s/p TXA and plt transfusion on 02/26/25, no further bleeding
Plan:
� Advance to a regular diet today
� Sq Lovenox and SCDs for VTE ppx
� Pain control with Tylenol, oxycodone and Dilaudid as needed; continue Entereg
- OOB/ambulate
- OR path pending
� Appreciate hospitalist
- Pain control: Toradol/Tylenol standing, Dilaudid PRN
- Possible d/c later today if having brown bowel movements. Will recheck hemoglobin late morning prior to discharge.
Subjective Data
Procedure
02/23/2025- Robotic right hemicolectomy, extensive lysis of adhesions greater than 1.5 hours, mesenteric angiography with ICG, colonoscopy, small bowel resection
Subjective Data
Date of Service: March 02, 2025
Patient states she has no pain. She is tolerating a diet. Denies nausea or vomiting. Her last bloody bowel movement was yesterday around 1pm.
Objective Data
-
Vital Signs
Temp Pulse Resp BP Pulse Ox
98.9 F 83 18 116/79 100
03/02/25 07:27 03/02/25 08:31 03/02/25 07:59 03/02/25 08:31 03/02/25 08:39
Intake & Output
03/01/25 03/02/25 03/03/25
06:59 06:59 06:59
Intake Total 2039 920 / 920 240 / 240
Balance 2039 920 / 920 240 / 240
Intake:
Oral fluids 2039 920 / 920 240 / 240
Other:
Number of approximated MODERATE 2 2 1
amounts of urine
How many times incontinent 2
MODERATE amount urine
Lab Results
03/02/25 06:54
03/01/25 05:53
Physical Exam
-
General: No Acute Distress and AOx3
Abdomen: Soft, Non Distended and Non Tender
Skin: Warm and Dry
Wound: No Signs of Infection
Incision: Clear, Dry, Intact
--- NOTE | 2025-03-02 10:56 | W.PN.HOSP.TC ---
Addendum entered and electronically signed by Kal Munroe MD 03/03/25 18:38:
Mild hypokalemia being replaced and improved.
Original Note:
Today's Communication/Plan
-
Reports no hematochezia over the last 24 hours.
Noted slight drop in hemoglobin at 7.9. Repeat hemoglobin pending.
Possible for discharge today.
Blood pressure remains
Antihypertensive regimen upon discharge: Continue metoprolol 100 mg twice daily. Hold Norvasc and Cozaar until follow-up with primary physician.
Assessment / Plan
Assessment / Plan
Impression.
Status post robotic right hemicolectomy on 02/23
Acute blood loss anemia
Other conditions:
Essential hypertension
COPD/bronchiectasis
Dyslipidemia
Hypothyroidism
Right breast carcinoma.
Squamous cell carcinoma right middle lobe
Thyroid carcinoma.
Plan:
Postoperative care as per surgical team.
Acuña removed.
Diet recently downgraded to NPO (except medications) given episodes of bleeding � upgraded back to Clears on 02/27/25 -- today upgraded to Full Liquids
Monitor hemoglobin
Adjust analgesic regimen with attempt to wean off IV morphine
Continue IV Toradol and oxycodone
Acute blood loss anemia, postoperative. Hemoglobin trending down from 11.4-9-7.3-7.6-8.8
Noted with recurrent episodes of hematochezia. So far self-limited. Hold heparin/chemical DVT prophylaxis. Follow hemoglobin.
Dose of TXA and 1 pack of platelets (takes aspirin at home) as per surgery given on 02/26/25
B12 within normal limits
Essential hypertension
Preadmission regimen including amlodipine losartan metoprolol
Continue metoprolol holding Amlodipine and Losartan monitor blood pressure -- SBP has been relatively well controlled in the past ~24 hours in the 110s to 130s range. HR okay.
COPD/bronchiectasis
Fairly recently diagnosis of squamous cell carcinoma at the right middle lobe.
Stable respiratory status
Pulmonary following
Incentive spirometry
Increase activity
Nebs/hypertonic sodium chloride nebulizations
Anxiety
Multiple benzodiazepines listed including Xanax, Klonopin, temazepam.
Resume Xanax as needed for anxiety. Hold rest. Will need reassessment of preadmission prescriptions
Continue sertraline
Chronic pain neuropathy. Resume gabapentin
Hypothyroidism. On Levothyroxine.
Anticipated Discharge: Within 24 hours
Subjective/Interval History
-
Date of Service: March 02, 2025
Objective Data
-
Labs:
Laboratory Results
03/02/25 03/02/25
06:54 11:00
WBC 2.7 L
Hgb 7.9 L Pending
Hct 23.2 L Pending
Plt Count 214
Vital Signs:
Vital Signs
Temp Pulse Resp BP Pulse Ox
98.9 F 83 18 116/79 100
03/02/25 07:27 03/02/25 08:31 03/02/25 07:59 03/02/25 08:31 03/02/25 08:39
I&O
03/01/25 03/02/25 03/03/25
06:59 06:59 06:59
Intake Total 2039 920 / 920 240 / 240
Balance 2039 920 / 920 240 / 240
Physical Exam
-
General: Well Developed and No Apparent Distress
HEENT: Normocephalic, Atraumatic and Moist Mucous Membranes
Respiratory: Clear to Auscultation
Cardiac: Regular Rhythm and S1/S2; Negative Murmur, Rub or Gallop
GI: Soft, Nontender, Nondistended and Normal Bowel Sounds; Negative Organomegaly
Rectal: Deferred by Provider
Musculoskeletal: No Clubbing, No Cyanosis and No Edema
Skin: Negative Rash
Neuro: Nonfocal/Grossly Intact
[2025-03-02 11:16] LABS: Hematocrit 26.0 % (37.0-47.0); Hemoglobin 8.7 g/dL (12.0-16.0)
[2025-03-02 11:52] VITALS: BP 110/93
--- NOTE | 2025-03-02 11:57 | CM ---
Patient seen at bedside on . Patient states that she wants to go home with [facility] supports and following discussion requested [facility]. CM confirmed patient has a ride home and patient requested information about support services. Patient lives at
[facility] and indicated that she was happy to go home. IMM completed and signed form placed on chart. CM will continue to follow for discharge planning needs.
Plan; home with [facility]; pending confirmation and family supports.
[2025-03-02 12:11] VITALS: BP 120/66; PULSE 67; O2SAT 97
--- NOTE | 2025-03-05 08:02 | PN.CDI ---
CDI
- -
CDI:
Physician Documentation Request
Admit Date: 02/23/25 07:13
Dear Doctor Semaj,
Please review the following and provide your response in the progress notes.
Clinical Indicators:
These diagnoses were included in the signed path report:
1. 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
2. Segment of colon with a tubular adenoma
Please indicate in your progress notes if you are in agreement that the above diagnosis is valid for this patient:
____ - small bowel GIST pT1, pN0 & colon tubular adenoma are valid diagnoses (Please include it in your progress notes)
____ - small bowel GIST pT1, pN0 & colon tubular adenoma are not valid diagnoses for this patient
____ - small bowel GIST pT1, pN0 & colon tubular adenoma are not yet confirmed but remains a suspected condition
____ - Other
____ - Unable to determine
Use of terms such as suspected, likely, concern for, or probable are acceptable for a diagnosis that is being evaluated, monitored or treated as if it exists and can be coded in the inpatient setting, when documented at the time of discharge.
Thank you,
Nya Rosen
Hydrogenation Operator
Please use your independent medical judgment in providing your response.
== END 2025-03-02 14:27 | disposition home health service (06) | DRG 330 ==
LOC: 2 SOUTH 07:13
PROVIDERS: Hospitalist; Internal Medicine; Nurse Practitioner Family; Physician Assistant; Registered Nurse; Surgery; ADMITTING PHYSICIAN Surgery; FAMILY PHYSICIAN Nurse Practitioner Family; OTHER PHYSICIAN Hospitalist; OTHER PHYSICIAN Internal Medicine
PROC: 0DTF4ZZ Resection of Right Large Intestine, Percutaneous Endoscopic Approach (ICD-10-PCS; 2025-02-23)
PROC: 8E0W4CZ Robotic Assisted Procedure of Trunk Region, Percutaneous Endoscopic Approach (ICD-10-PCS; 2025-02-23)
PROC: 0DB84ZZ Excision of Small Intestine, Percutaneous Endoscopic Approach (ICD-10-PCS; 2025-02-23)
PROC: 0DJD8ZZ Inspection of Lower Intestinal Tract, Via Natural or Artificial Opening Endoscopic (ICD-10-PCS; 2025-02-23)
PROC: 0DN84ZZ Release Small Intestine, Percutaneous Endoscopic Approach (ICD-10-PCS; 2025-02-23)
PROC: 0DNU4ZZ Release Omentum, Percutaneous Endoscopic Approach (ICD-10-PCS; 2025-02-23)
PROC: 30233R1 Transfusion of Nonautologous Platelets into Peripheral Vein, Percutaneous Approach (ICD-10-PCS; 2025-02-26)
DX: D12.2 Benign neoplasm of ascending colon (principal); C34.2 Malignant neoplasm of middle lobe, bronchus or lung; K63.3 Ulcer of intestine; Q43.8 Other specified congenital malformations of intestine; J98.11 Atelectasis; D62 Acute posthemorrhagic anemia; K92.1 Melena; C49.A3 Gastrointestinal stromal tumor of small intestine; I95.9 Hypotension, unspecified; D69.59 Other secondary thrombocytopenia; E87.6 Hypokalemia; K66.0 Peritoneal adhesions (postprocedural) (postinfection); I10 Essential (primary) hypertension; E78.00 Pure hypercholesterolemia, unspecified; J47.9 Bronchiectasis, uncomplicated; E89.0 Postprocedural hypothyroidism; F32.A Depression, unspecified; F41.9 Anxiety disorder, unspecified; K21.9 Gastro-esophageal reflux disease without esophagitis; G62.9 Polyneuropathy, unspecified; G89.29 Other chronic pain; Z92.3 Personal history of irradiation; Z86.000 Personal history of in-situ neoplasm of breast; Z85.850 Personal history of malignant neoplasm of thyroid; Z85.118 Personal history of other malignant neoplasm of bronchus and lung; Z87.891 Personal history of nicotine dependence; Z79.82 Long term (current) use of aspirin
CPT/HCPCS: 36415; 71046; 74019; 80048; 80053; 82607; 83036; 83735; 84443; 85014; 85018; 85025; 85027; 86850; 86900; 86901; 88307; 88309; 88341; 88342; 93005; 94640; 97116; 97163; 97530; C1776; P9035

== ENCOUNTER → 2025-04-09 12:21 | Outpatient (REF) | payer OTHER, SELFPAY | LOC: HWRAD 12:21 | PROVIDERS: ATTENDING PHYSICIAN Radiology Radiation Oncology; FAMILY PHYSICIAN Nurse Practitioner Family | DX: C34.2 Malignant neoplasm of middle lobe, bronchus or lung (principal) | CPT/HCPCS: 71250 ==

== ENCOUNTER → 2025-06-08 15:00 | Outpatient (REF) | payer OTHER, SELFPAY ==
[2025-06-09 11:02] LABS: Hematocrit 23.4 % (37.0-47.0); Hemoglobin 7.1 g/dL (12.0-16.0); Mean Corp Hgb Conc. 30.3 g/dL (33.0-37.0); Mean Corpuscular Volume 81.5 fL (81.0-99.0); Platelet Count 280 10^3/uL (130-400); Red Cell Dist. Width 18.3 % (11.5-14.5)
[2025-06-09 11:25] LABS: ALT (SGPT) 22 U/L (0-35); AST (SGOT) 26 U/L (14-36); Albumin 4.1 g/dl (3.5-5.0); Alkaline Phosphatase 66 U/L (38-126); Blood Urea Nitrogen 16 mg/dl (7-17); Calcium 8.6 mg/dl (8.4-10.2); Carbon Dioxide 25 mmol/L (22-30); Chloride 109 mmol/L (98-107); Glucose 100 mg/dl (70-99); Potassium 4.2 mmol/L (3.5-5.1); Sodium 140 mmol/L (135-145); Total Protein 6.9 g/dl (6.3-8.2); eGFR > 60.00
[2025-06-09 11:31] LABS: Prealbumin (Transthyretin) 21.9 mg/dl (17.6-36.0)
[2025-06-09 11:44] LABS: Vitamin D, 25-OH*** 68.4 ng/mL (30-80)
[2025-06-09 14:16] VITALS: BMI 24.5
--- NOTE | 2025-06-10 10:59 | PTCARENOTE ---
Patients 06/09 HGB-7.1- Evelyn @ Dr. Henderson office notified
--- NOTE | 2025-06-10 13:20 | PTCARENOTE ---
Dr Hartman notified of patients 06/09 HGB-7.1, requested surgeons office be notified which was done @ 10:59 today
== END ==
LOC: SDSPAT 15:00
PROVIDERS: ATTENDING PHYSICIAN Surgery; FAMILY PHYSICIAN Nurse Practitioner Family
DX: D05.91 Unspecified type of carcinoma in situ of right breast (principal); Z01.818 Encounter for other preprocedural examination
CPT/HCPCS: 36415; 80053; 82306; 84134; 85027

== ENCOUNTER 2025-06-15 10:29 | Outpatient (RCR) | payer OTHER, SELFPAY ==
[2025-06-15 10:45] VITALS: BP 103/76
[2025-06-15 11:06] VITALS: BP 103/76
[2025-06-15 11:29] VITALS: BP 122/64
[2025-06-15 13:06] VITALS: BP 122/66
== END 2025-06-25 23:59 | disposition home or self-care (01) ==
LOC: OID 10:29
PROVIDERS: ATTENDING PHYSICIAN Internal Medicine Hematology & Oncology
DX: D05.11 Intraductal carcinoma in situ of right breast (principal); C34.2 Malignant neoplasm of middle lobe, bronchus or lung; C49.A3 Gastrointestinal stromal tumor of small intestine; D50.9 Iron deficiency anemia, unspecified; Z85.850 Personal history of malignant neoplasm of thyroid
CPT/HCPCS: 36430; 86850; 86870; 86900; 86901; 86905; 86920; 86922; P9016

== ENCOUNTER → 2025-06-30 13:12 | Outpatient (REF) | payer OTHER, SELFPAY | LOC: HWRAD 13:12 | PROVIDERS: ATTENDING PHYSICIAN Radiology Radiation Oncology; FAMILY PHYSICIAN Nurse Practitioner Family | DX: C34.2 Malignant neoplasm of middle lobe, bronchus or lung (principal) | CPT/HCPCS: 71250 ==

== ENCOUNTER 2025-07-29 06:29 | Day surgery (SDC) | payer OTHER, SELFPAY | END 2025-07-29 12:52 | disposition home or self-care (01) | LOC: GI 06:29 | PROVIDERS: ATTENDING PHYSICIAN Internal Medicine Gastroenterology | DX: R12 Heartburn (principal); D50.0 Iron deficiency anemia secondary to blood loss (chronic); K22.89 Other specified disease of esophagus; K31.7 Polyp of stomach and duodenum; R19.5 Other fecal abnormalities | CPT/HCPCS: 43239; 88305 ==